=== PATIENT | female | born 1995 | race African-American/Black ===

== ENCOUNTER 2022-04-15 07:58 | Emergency (ER) | payer OTHER, SELFPAY ==
--- NOTE | ~2022-04-15 | XR_ITS ---
EXAMINATION: XR hand RT min 3V INDICATION: Right hand pain TECHNIQUE: Three views of the right hand are obtained. COMPARISON: None available FINDINGS: There is no fracture, dislocation, or subluxation. The bones, soft tissues, and joint space s are normal. IMPRESSION: 1. No acute osseous abnormality. Reviewed, dictated and finalized at location B. CTOR OF REIMBURSEMENT
--- NOTE | 2022-04-15 08:16 | ED.GENADULT ---
HPI - General Adult General Chief complaint: Extremity Injury, Upper Stated complaint: FALL, RIGHT HAND PAIN Time Seen by Provider: 04/15/22 08:09 Source: RN notes reviewed History of Present Illness HPI narrative: Patient presents emergency department from home for right hand pain. Patient is approximately 2 weeks ago she fell going up the stairs and had braced herself with her right hand she states since that time she had pain over the lateral aspect of her right hand over the fifth metacarpal patient denies any swelling or ecchymosis states pain is worse with making a fist and moving the hand she denies any wrist pain she denies any other trauma or injury states she has not taken anything for the pain she denies any numbness or tingling in the fingers Related Data Allergies Allergy/AdvReac Type Severity Reaction Status Date / Time No Known Allergies Allergy Unknown Unverified 04/05/19 16:16 No Known Allergies Allergy Uncoded 04/05/19 16:16 Review of Systems Review of Systems: Gen.: Denies fevers or chills Musculoskeletal: See HPI Neuro: Denies numbness, tingling, weakness Skin: Denies rash Endo: Denies DM PMFSH Past Medical History Medical History (Updated 04/15/22 @ 08:45 by Jose Shannon DO) Patient denies significant medical history Social History Social History (Updated 04/15/22 @ 08:17 by Jose Shannon DO) Smoking status: Never smoker Exam Narrative: APPEARANCE: No acute distress, nontoxic, resting in bed Eyes: EOMI HEENT: Normocephalic, atraumatic, RESPIRATORY: No respiratory distress MUSCULOSKELETAl: Tender palpation over the right lateral hand over the fifth metacarpal no swelling or ecchymosis noted no tenderness of the wrist with full flexion-extension of the wrist full flexion-extension of all 5 MCP and IP joints, radial pulse 2+ neurovascular intact NEURO: Awake and alert. Following commands, speech normal, no focal deficits SKIN:: Warm, dry. Normal Color no rash or lesions Course Course Emergency Course: Discussed with patient results of workup and diagnosis. Discussed need for follow-up with primary care, proper use of medication, and reasons to return to the emergency department. Patient understands and agrees to current treatment plan Medical Decision Making Imaging Data Radiologist's impression: ITS Impressions Hand X-Ray 04/15/22 08:28 IMPRESSION: 1. No acute osseous abnormality. Discharge Plan Discharge Clinical Impression: Contusion of hand, right Patient Disposition: Home, Self-Care Condition: Stable Instructions: Antibiotic Form, Contusion in Adults (ED) Additional Instructions: Return for increasing pain swelling or any other symptoms of concern Prescriptions: New ibuprofen 600 mg tablet 600 mg PO TID PRN (Reason: pain) Qty: 14 0RF Follow-up/Referrals: Wilner,JYOTSNA Hardy [Primary Care Provider] - 2 Days Time of Disposition: 08:45
[2022-04-15 08:30] VITALS: BP 125/85; PULSE 67; RESP 15; TEMP 36.7; O2SAT 100
[2022-04-15] MEDS: IBUPROFEN 600 MG TABLET PO (09:03)
== END 2022-04-15 09:31 | disposition home or self-care (01) ==
PROVIDERS: Emergency Provider Emergency Medicine; PCP Physician Assistant
DX: S60.221A Contusion of right hand, initial encounter (principal); W10.9XXA Fall (on) (from) unspecified stairs and steps, initial encounter
CPT/HCPCS: 73130; 99283; A9270

== ENCOUNTER 2022-05-03 11:58 | Emergency (ER) | payer OTHER, SELFPAY ==
--- NOTE | ~2022-05-03 | CT_ITS ---
EXAMINATION: CT wrist RT wo con DATE: 05/03/2022 14:33 INDICATION: Right wrist injury with numbness, tingling centimeters seizures. TECHNIQUE: High resolution computed tomography (CT) of the right wrist was performed without intraven ous contrast. Additional sagittal and coronal reconstructions were performed. Automated exposure cont rol and iterative reconstruction technique were employed. The dose-length product was 431.72 mGy-cm. COMPARISON: 04/15/2022 FINDINGS: Possible old fracture deformity at the ulnar styloid process. Alignment is normal. No acute fracture. Joint spaces are normal. There is some subcutaneous edema along the ulnar/volar aspect of the wrist. Soft tissues appear otherwise unremarkable. IMPRESSION: 1. No acute osseous abnormality. Reviewed, dictated and finalized at location A. 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
--- NOTE | ~2022-05-03 | XR_ITS ---
EXAMINATION: XR foot RT min 3V DATE: 05/03/2022 14:44 INDICATION: Dropped an object on the right forefoot TECHNIQUE: Dorsoplantar, two oblique and lateral views of the right foot were obtained. COMPARISON: None. FINDINGS: Alignment is normal. No fracture. Joint spaces are normal. Soft tissues are unremarkable. IMPRESSION: 1. Negative right foot radiographs. Reviewed, dictated and finalized at location A. NCIAL PROFESSIONAL
[2022-05-03 12:09] VITALS: BP 126/73; PULSE 92; RESP 16; TEMP 36.9; O2SAT 100
[2022-05-03] MEDS: KETOROLAC 30 MG/ML VIAL (*BKC) IM (14:25)
--- NOTE | 2022-05-03 14:29 | ED.NEUROSD ---
HPI - Neuro Symptoms/Deficit General Chief Complaint: Neuro Symptoms/Deficit Stated Complaint: right hand pain and tingling, right foot injury Time Seen by Provider: 05/03/22 14:11 History of Present Illness HPI Narrative: 27-year-old female here for evaluation of numbness and tingling in her right wrist and fingers over the past 3 weeks. Patient states that she injured this 3 weeks ago, was seen in the ED and plain films of her wrist were negative for fractures. Since then, she has been experiencing intermittent numbness and tingling in the wrist in addition to pain. Also notes intermittent weakness in the hand, she was holding a pot in her hand yesterday and the weakness led her to drop the item on her right foot. The numbness and tingling is worse at night and with certain positions. No headaches, visual changes, slurred speech. Related Data Allergies Allergy/AdvReac Type Severity Reaction Status Date / Time No Known Allergies Allergy Unknown Verified 05/03/22 12:09 Review of Systems Review of Systems: Gen: Denies fevers or chills Eyes: Denies eye pain or visual change ENT: Denies congestion Respiratory: Denies shortness of breath or cough CV: Denies chest pain or palpitations GI: Denies abdominal pain nausea, emesis or diarrhea denies burning, urgency, frequency or hematuria Musculoskeletal: Reports numbness and tingling in right wrist. Denies back pain or muscle pain Neuro: Denies numbness, tingling, weakness or focal weakness Skin: Denies rash Except as documented, all other systems reviewed and negative PMFSH Past Medical History Medical History Patient denies significant medical history Social History Social History (Updated 04/15/22 @ 08:17 by Jose Shannon DO) Smoking status: Never smoker Exam Narrative: APPEARANCE: Well appearing, no pain in distress, well-nourished. Head: Normocephalic and atraumatic. EYES: PERRLA/EOMI, conjunctivae clear NOSE: No nasal drainage EARS: External ear normal in appearance THROAT: Oropharynx is clear. Mucous membranes are moist. NECK: Supple. No adenopathy, no masses. RESPIRATORY: Airway patent, respirations nonlabored. Clear to auscultation bilaterally, no rales, rhonchi, wheezing. CARDIOVASCULAR: Regular rate and rhythm without murmurs, rubs, or gallops. ABDOMINAL: Normoactive bowel sounds. Soft, nontender, nondistended. No rebound tenderness or guarding. MUSCULOSKELETAL: Phalen's test positive. Tinel negative. Bony tenderness to palpation along lunate/triquetrum and distal ulna. No bony tenderness to medial or lateral malleolus, patient's area of pain is over the dorsal aspect of her right foot. NEURO: Normal speech. No focal neurologic deficits. SKIN: Skin is warm and dry. No rashes. PSYCHIATRIC: Normal affect/mood. Course Vital Signs Vital signs: Vital Signs Temperature 98.4 F 05/03/22 12:09 Pulse Rate 92 05/03/22 12:09 Respiratory Rate 16 05/03/22 12:09 Blood Pressure 126/73 05/03/22 12:09 Pulse Oximetry 100 05/03/22 12:09 Temperature 98.4 F 05/03/22 12:09 Pulse Rate 86 05/03/22 15:39 Respiratory Rate 16 05/03/22 15:39 Blood Pressure 142/88 H 05/03/22 15:39 Pulse Oximetry 99 05/03/22 15:39 MDM - Neuro Symptoms/Deficit MDM Narrative Medical decision making narrative: 27-year-old female here for evaluation of numbness and tingling in her right hand and wrist over the past several weeks. Patient has slight bony tenderness to palpation over her ulnar styloid process but no obvious deformity. Her Phalen's test is positive. She is neurovascularly intact throughout the hand. History and physical exam suspicious for carpal tunnel syndrome. 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 Given recent history of trauma, CT of the wrist was obtained which shows no acute process. Foot x-ray does not show any fractures. She was given Toradol
[2022-05-03 15:39] VITALS: BP 142/88; PULSE 86; RESP 16; O2SAT 99
== END 2022-05-03 15:40 | disposition home or self-care (01) ==
PROVIDERS: Emergency Provider Physician Assistant; PCP Physician Assistant
DX: G56.01 Carpal tunnel syndrome, right upper limb (principal); S99.921A Unspecified injury of right foot, initial encounter; W20.8XXA Other cause of strike by thrown, projected or falling object, initial encounter
CPT/HCPCS: 73200; 73630; 96372; 99284; J1885

== ENCOUNTER 2022-08-26 09:52 | Outpatient (CLI) | payer OTHER, SELFPAY ==
--- NOTE | 2022-08-26 11:00 | NEURO_ITS ---
Impression: # Complains of numbness of hands. # Bilateral Carpal Tunnel Syndrome. # Ulnar to median cross innervation noted on the right. # Normal needle/EMG exam. Motor Nerve Conduction Upper Extremities Median Nerve Conduction Velocity (m/sec) Terminal Latency (msec) Response Voltage(mV) Elbow-Wrist Wrist Elbow Wrist Right 44 3.5 2 2 Left 64 4.5 2 5 Ulnar Nerve Conduction Velocity (m/sec) Terminal Latency (msec) Response Voltage(mV) Above Elbow Below Elbow Wrist Above Elbow Below Elbow Wrist Right 57 2.5 8 10 Left 58 2.3 8 9 F-Wave Latency Median (ms) Ulnar (ms) Right 28.3 25.1 Left 27.0 26.4 Sensory Nerve Conduction Upper Extremities Median Nerve Stimulation Terminal Latency (msec) Wrist/Digit Response Voltage (uV) Wrist Right 7.4/7.9 50/72 Left 3.9/3.4 24/28 Ulnar Nerve Stimulation Terminal Latency (msec) Wrist/Digit Response Voltage (uV) Wrist Right 2.6 97 Left 2.5 62 Radial Nerve Terminal Latency (msec) Response Voltage(mV) Right 2.0 35 Left 2.0 28 Left Right Muscles Examined Fibrillation Fasciculation Scarcity Voltage Duration Left Right Left Right Left Right Left Right Left Right Deltoid Biceps X X Brachioradialis Triceps X X Pronator Teres X X Ext Indicis X X Ext Digitorum X X Abd Poll Brev X X 1st Dorsal Interosseus X X Abd Dig Min MTDD
== END 2022-08-26 09:53 | disposition home or self-care (01) ==
LOC: ANHNEURO 09:53
PROVIDERS: PCP Physician Assistant; Visit Provider Plastic Surgery
DX: R20.2 Paresthesia of skin (principal); G56.03 Carpal tunnel syndrome, bilateral upper limbs
CPT/HCPCS: 95886; 95911

== ENCOUNTER 2022-10-02 00:28 | Day surgery (SDC) | payer OTHER, SELFPAY ==
[2022-09-26 14:01] VITALS: BMI 32.8
--- NOTE | 2022-09-26 14:20 | PC.NURSE ---
Report to the Outpatient Waiting Room, entrance under the green pavilion located off [facility], at time 1000_ on date _10/02/22. Planned Procedure Time: _1100_. Time changes happen often and if your time is changed the preop area will call you the afternoon before. - You and your visitor will be asked to self-screen and do not enter if you have any COVID symptoms. - A mask is optional within the hospital at this time. Patients may have clear liquids (water, carbonated beverages, clear teas, apple juice) until 3 hours prior to surgery with a maximum of 20 ounces. - LIGHT LUNCH BEFORE SURGERY - Take the following medications with a SIP of water the morning of surgery: __N/A DO NOT STOP ANY OF YOUR OTHER PRESCRIPTION MEDICATIONS PRIOR TO SURGERY ?EXCEPT THE FOLLOWING Medications to discontinue per physician N/A Date to take last dose N/A Please no make-up, nail yakut, hairspray, perfume, deodorant, or body powder the day of surgery. No jewelry (including any body piercings) or valuables the day of surgery, leave them at home. Please take a shower or bath the night before, or the morning of, surgery with an antibacterial soap. Wear comfortable, loose fitting clothing. Children are encouraged to wear pajamas. - Jewelry must be removed prior to entering the operating room. Rings and piercings that are not removed may be cut off. - The hospital will not accept responsibility for valuables. - Please leave all valuables, including medications, at home the day of surgery. If you are going home after surgery, a licensed tanker truck driver must drive you home. - NO public transportation without another adult if you receive anesthesia. - We recommend that an adult stay with you for 24 hours following discharge. - We also recommend that you do not drive, make important decision, drink alcoholic beverages, or take any drugs that were not prescribed by your health care provider for at least 24 hours after your discharge time. Follow any additional instructions given to you from your surgeon. If you or anyone in your household have experienced Covid symptoms in the past week, please notify your surgeon or the nurse liaison at the phone number below for possible testing. Telephone instructions given to JASPERRajniand asked if any additional questions and then verbalized understanding. Patient advised to call surgeon office or pre surgery nurse liaison [phone] if any additional questions.
--- NOTE | 2022-10-02 07:17 | WPDHPUPDATE1 ---
History and Physical Update Update Date/Time: 10/02/22 07:17 History and Physical has been reviewed, including an updated exam of the patient. There are NO changes in the patient's condition. Risks, benefits, and alternatives have been discussed and questions answered. Patient agrees to proceed with procedure.
[2022-10-02 09:42] VITALS: BP 120/63; PULSE 76; RESP 14; TEMP 36.5; O2SAT 100
[2022-10-02 10:01] VITALS: BP 115/62; PULSE 69; RESP 16; O2SAT 97
[2022-10-02 10:09] VITALS: BP 114/64; PULSE 61; RESP 16; O2SAT 100
[2022-10-02] MEDS: LIDO 1%/EPINEPHRINE 1:100,000 20 ML VIAL 10 ML INFILTRATE (10:16)
[2022-10-02 10:19] VITALS: BP 116/75; PULSE 69; RESP 16; O2SAT 99
[2022-10-02 10:29] VITALS: BP 115/72; PULSE 71; RESP 16; O2SAT 100
[2022-10-02 10:44] VITALS: BP 107/71; PULSE 60; RESP 14; O2SAT 100
--- NOTE | 2022-10-02 10:58 | W.PM.PROC2 ---
Procedure Note - Detailed Date of Procedure 10/02/22 Pre-op Diagnosis Rt Carpal Tunnel Syn Post-op Diagnosis Same Procedure Performed Right open carpal tunnel release Surgeon Jose Duque MD Anesthesia Local Description of Procedure The right carpal tunnel area was marked on the patient with her consent. she was then taken to the operating placed supine on the operating table. The extremity was prepped and draped in usual fashion. A time-out was held and confirmed. The site was remarked for the incision and locally infiltrated with 1% lidocaine with epinephrine. The incision was made as marked. Blunt dissection revealed the palmar aponeurosis. Beyond that we could not proceed without use of the tourniquet. The extremity was exsanguinated and the tourniquet inflated to 250 mmHg. The site was re-examined and the transverse retinaculum was incised with a 15. Blade under 3 point retraction. The canal was opened and the retinacular released distally and proximally for complete release. There was no unusual anatomy noted. The skin was closed with interrupted 5 0 nylon suture. Usual bandage was applied. She is discharged home with instructions wound care and follow-up and a prescription for hydrocodone 5/325 number 6 Estimated Blood Loss 5 Drains No Packing No Pathology None sent Complications No immediate complications Condition Stable Disposition Same day
== END 2022-10-02 11:06 | disposition home or self-care (01) ==
PROVIDERS: PCP Internal Medicine; Visit Provider Plastic Surgery
PROC: (CPT 64721; principal; 2022-10-02 10:00)
DX: G56.01 Carpal tunnel syndrome, right upper limb (principal)
CPT/HCPCS: 64721; A9270

== ENCOUNTER 2023-08-23 10:34 | Emergency (ER) | payer OTHER, SELFPAY ==
--- NOTE | ~2023-08-23 | CT_ITS ---
EXAMINATION: CT abdomen pelvis w con DATE: 08/23/2023 12:28 INDICATION: Periumbilical and lower abdominal pain TECHNIQUE: Computed tomography (CT) of the abdomen and pelvis was performed with 100 mL Omnipaque-350 intravenous contrast. Automated exposure control and iterative reconstruction technique were employe d. The dose-length product was 709.91 mGy-cm. COMPARISON: None FINDINGS: Lung bases are clear. Heart size is normal. No pericardial or pleural effusion. Focal hepatic steatos is at the ligamentum teres. Gallbladder, spleen, pancreas, bilateral adrenal glands and kidneys are n ormal. No bowel obstruction. Small amount of ascites in the pelvis and at the bilateral paracolic gut ters. Bladder, anteverted uterus and bilateral adnexa are unremarkable. No abscess or free intraperit bassett gas. No pathologically enlarged abdominal or pelvic lymphadenopathy. Mild lower thoracic spondy losis. IMPRESSION: 1. Small amount of. Nonspecific ascites in the lower abdomen and pelvis. No other acute intra-abdomin al/pelvic process. Reviewed, dictated and finalized at location A. IMPRESSION: 1. Small amount of. Nonspecific ascites in the lower abdomen and pelvis. No oth er acute intra-abdominal/pelvic process.
--- NOTE | ~2023-08-23 | US_ITS ---
EXAMINATION: US transvaginal DATE: 08/23/2023 17:39 INDICATION: pelvic pain were TECHNIQUE: Multiple transabdominal and endovaginal sonographic images of the pelvis were obtained. COMPARISON: None. FINDINGS: Uterus: 8.5 x 3.8 x 5.8 cm. Endometrial complex measures 7 mm. Right Ovary: 4.2 x 3.1 x 3.5 cm. Vascular flow is present. Irregular, avascular, hypoechoic ovarian l esion with small areas of ill-defined somewhat reticular internal echogenicity. Left Ovary: 2.8 x 1.2 x 2.2 cm. Vascular flow is present. There is small volume free fluid in the deep pelvis, anterior to the uterus, and in the right adnexa. IMPRESSION: Small volume ascites. Likely resolving hemorrhagic or corpus luteal cyst in the right ovary. Otherwise normal transvaginal pelvic sonogram findings. Reviewed, dictated and finalized at location K.
--- NOTE | ~2023-08-23 | US_ITS ---
EXAMINATION: US pelvic complete DATE: 08/23/2023 15:40 INDICATION: dysuria, lower abd pain TECHNIQUE: Multiple transabdominal sonographic images of the pelvis were obtained. COMPARISON: CT abdomen pelvis, same date. FINDINGS: Uterus: 9.4 x 4.4 x 5.4 cm. Endometrial complex measures 3 mm. Right Ovary: 4.6 x 2.0 x 2.3 cm. Vascular flow is present. Left Ovary: Not visualized. There is small volume free fluid in the deep pelvis, anterior to the uterus and in the right adnexa. IMPRESSION: Small volume ascites. Left ovary not visualized. Otherwise normal transabdominal pelvic ultrasound findings. Reviewed, dictated and finalized at location K.
[2023-08-23 10:43] VITALS: BP 133/75; PULSE 73; RESP 20; TEMP 36.2; O2SAT 99
[2023-08-23 11:05] VITALS: BP 119/70; PULSE 70; RESP 14; O2SAT 100
--- NOTE | 2023-08-23 11:32 | ED.ABDPAIN ---
HPI - Abdominal Pain General Chief Complaint: Abdominal Pain Stated Complaint: right flank pain Time Seen by Provider: 08/23/23 10:55 History of Present Illness HPI narrative: 28-year-old female presents to the emergency department for abdominal pain x1 day. Patient states yesterday she began developing some discomfort in her lower abdomen and in her periumbilical region. States today while at work became worse, she developed nausea and 1 episode of emesis which prompted her come to the ED. states she feels like she has a UTI because this is how has presented in the past. She reports discomfort when she urinates, denies dysuria or hematuria. Denies flank pain, fever, prior abdominal surgeries. Last bowel movement was yesterday. She also endorses diarrhea that started yesterday. States she has been eating and drinking without difficulty. Reports she is sexually active with 1 partner for 10 years. Denies vaginal discharge, vaginal itching or sores or concern for STDs. States she went and saw her OBGYN 2 weeks ago for discomfort when urinating and had negative STD swabs. States she did not undergo a pelvic exam at this time. Related Data Home Medications Medication Instructions Recorded Confirmed segesterone acet 0.15 mg-ethinyl 1 vag ring vaginal MONTHLY 09/26/22 09/26/22 estradiol 0.013 mg/24 hr vaginal ring ([place]) Allergies Allergy/AdvReac Type Severity Reaction Status Date / Time No Known Allergies Allergy Unknown Verified 08/23/23 11:03 Review of Systems Review of Systems: CONSTITUTIONAL: Denies fever, chills, or sweats. EYES: Denies visual changes, redness, or discharge. ENT: Denies rhinorrhea, congestion, sore throat, or otalgia. CARDIOVASCULAR: Denies chest pain, palpitations, or edema. RESPIRATORY: Denies cough or dyspnea. GASTROINTESTINAL: See HPI GENITOURINARY: Denies dysuria or hematuria. SKIN: Denies rash or itching. MUSCULOSKELETAL: Denies back pain, joint pain, or myalgia. NEUROLOGIC: Denies headache, numbness, or weakness. PSYCHIATRIC: Denies anxiety or depression. [facility] Past Medical History Medical History Patient denies significant medical history Social History Social History Smoking status: Never smoker Smokeless tobacco user: other Alcohol intake: never Substance use: never Substance use type: marijuana Other substance usage details: OCCAS. MARIJUANA SMOKER Last use: 09/25/22 Living arrangements: with family Occupation/Education: occupation Gender identity (if verbalized by the patient): Female Sexual Orientation (if Verbalized by the Patient): Straight or Heterosexual Spiritual care concerns: No Agree to blood products: Yes Exam Narrative: GENERAL: Well-appearing, well-nourished, and in no acute distress. HEAD: Normocephalic, atraumatic. EYES: PERRLA and EOMI. ENT: Nares clear, no rhinorrhea or epistaxis. Mucous membranes moist. NECK: Supple. CHEST: Clear to auscultation. No respiratory distress. HEART: Regular rate and rhythm. No murmur heard. Normal peripheral pulses. ABDOMEN: Normoactive bowel sounds. Abdomen soft with tenderness in the periumbilical region, mild tenderness in the suprapubic region, right lower quadrant and left lower quadrant. No guarding, rebound or rigidity. Negative McBurney's and Paredes's. No CVA tenderness. : Normal external genitalia. No lesions or rashes. Vaginal vault with thick white discharge, no bleeding. Cervical os closed. No CMT or adnexal masses or tenderness. EXTREMITIES: Normal range of motion. No edema. SKIN: Warm, dry, no rash. NEURO: No focal deficits. Alert and oriented x3 Course Vital Signs Vital signs: Vital Signs Temperature 97.2 F L 08/23/23 10:43 Pulse Rate 73 08/23/23 10:43 Respiratory Rate 20 08/23/23 10:43 Blood Pressure 133/75 08/23/23 10:43 Pulse
[2023-08-23] MEDS: SODIUM CHLORIDE 0.9% IV 1,000 ML 999 ML IV CONT (11:46)
[2023-08-23] MEDS: ONDANSETRON INJ 4 MG/2 ML VIAL IV PUSH (11:47)
[2023-08-23 11:48] VITALS: BP 119/69; PULSE 66; RESP 15; O2SAT 100
[2023-08-23 11:53] LABS: Basophils Absolute Auto 0.1 K/mm3 (0.0-0.1); Basophils Percent Auto 0.4 % (0.2-1.2); Eosinophils Absolute Auto 0.1 K/mm3 (0-0.3); Eosinophils Percent Auto 0.6 % (0-4.4); Hematocrit 39.8 % (37.0-47.0); Hemoglobin 13.3 g/dL (12.0-15.0); Immature Granulocyte Absolute 0.05 K/mm3 (0.00-0.031); Immature Granulocyte Percent A 0.3 % (0-0.5); Lymphocytes Absolute Auto 2.53 K/mm3 (0.9-3.2); Lymphocytes Percent Auto 17.6 % (18.3-44.2); Mean Corpuscular HGB Conc 33.4 g/dl (32-36); Mean Corpuscular Hemoglobin 31.6 pg (26-34); Mean Corpuscular Volume 94.5 fl (80-100); Mean Platelet Volume 9.9 fl (7.4-10.4); Monocytes Absolute Auto 0.6 K/mm3 (0.1-0.6); Neutrophils Absolute Auto 11.1 K/mm3 (1.3-6.7); Neutrophils Percent Auto 77.1 % (45.5-73.1); Platelet Count Result 364 k/mm3 (150-375); Red Blood Count 4.21 M/mm3 (4.2-5.4); Red Cell Distribution Width 12.8 % (11.5-14.5); White Blood Count 14.4 K/mm3 (4.5-10.0)
[2023-08-23 11:55] LABS: Appearance Urine Clear (Clear); Bilirubin Urine Negative (Negative); Blood Urine Negative (Negative); Color Urine Yellow (Yellow); Glucose Urine UA Negative (Negative); Ketones Urine Trace mg/dL (Negative); Leukocyte Esterase Ur Negative LEU/UL (Negative); Nitrate Urine Negative (Negative); Protein Urine Negative (Negative); Specific Grav Ur 1.022 (1.001-1.035); Urobilinogen Urine 0.2 mg/dL (<2.0); pH Urine 5.5 (5.0-9.0)
[2023-08-23 12:10] LABS: Add Urine Microscopic? NO
[2023-08-23 12:12] LABS: Lactic Acid Reflex 1.4 mmol/L (0.7-2.0)
[2023-08-23 12:13] LABS: Alanine Aminotransferase 13 U/L (6-35); Albumin Level 4.2 g/dL (3.5-5.1); Alkaline Phosphatase 74 U/L (38-126); Anion Gap 4 mmol/L (8-16); Aspartate Amino Transferase 23 U/L (14-36); Bilirubin,Total 0.3 mg/dL (0.2-1.3); Blood Urea Nitrogen 11 mg/dL (7-17); Calcium 9.2 mg/dL (8.4-10.2); Carbon Dioxide 29 mmol/L (22-30); Chloride 105 mmol/L (98-107); Estimated CRCL calculation 124 ml/min; Estimated Glomerular Filt Rate > 60; Glucose 91 mg/dL (65-110); Lipase 74 U/L (23-300); Potassium 3.7 mmol/L (3.4-5.0); Sodium 138 mmol/L (137-145)
[2023-08-23 14:05] VITALS: BP 118/82; PULSE 79; RESP 14; O2SAT 100
[2023-08-23 15:27] LABS: Trichomonas Vag PCR NOT DETECTED (NOT DETECTE)
[2023-08-23 15:41] VITALS: BP 120/78; PULSE 66; RESP 14; O2SAT 98
[2023-08-23 15:50] LABS: Chlamydia trachomatis NOT DETECTED (NOT DETECTE); Neisseria gonorrhoeae PCR NOT DETECTED (NOT DETECTE)
[2023-08-23 18:26] VITALS: BP 122/80; PULSE 67; RESP 14; TEMP 36.4; O2SAT 100
[2023-08-23] MEDS: metroNIDAZOLE 500 MG TABLET PO (18:26)
[2023-08-26 10:03] LABS: Bacterial Vaginosis Negative (Negative)
== END 2023-08-23 18:29 | disposition home or self-care (01) ==
PROVIDERS: Emergency Provider Physician Assistant; PCP Internal Medicine
DX: N83.201 Unspecified ovarian cyst, right side (principal); R10.30 Lower abdominal pain, unspecified; Z87.440 Personal history of urinary (tract) infections
CPT/HCPCS: 36415; 74177; 76830; 76856; 80053; 81025; 81513; 83605; 83690; 85025; 87491; 87591; 87661; 96361; 96374; 99284; A9270; J2405; J7030; Q9967

== ENCOUNTER 2023-11-21 11:04 | Emergency (ER) | payer MEDICAID, SELFPAY ==
[2023-11-21 11:08] VITALS: BP 125/80; PULSE 86; RESP 20; TEMP 36.5; O2SAT 100
--- NOTE | 2023-11-21 12:09 | ED.EXTPRO ---
HPI - Extremity Problem General Chief complaint: Extremity Problem,Nontraumatic Stated complaint: swollen finger, pain up the arm Time Seen by Provider: 11/21/23 11:14 Source: patient Mode of arrival: ambulatory Limitations: no limitations History of Present Illness HPI Narrative: patient is a 28-year-old female who presents the ED with report of pain throughout her right 4th digit. Patient reports she began noticing pain and mild swelling to the tip of her finger on Friday. She began noticing an area of pus collection around the cuticle on Friday. Symptoms have continued to worsen. She reports pain intermittently shoots up her arm. Denies any known injury to nail/cuticle. Does frequently have hang-nails. Denies fevers. Related Data Home Medications Medication Instructions Recorded Confirmed segesterone acet 0.15 mg-ethinyl 1 vag ring vaginal MONTHLY 09/26/22 09/26/22 estradiol 0.013 mg/24 hr vaginal ring ([place]) Allergies Allergy/AdvReac Type Severity Reaction Status Date / Time No Known Allergies Allergy Unknown Verified 11/21/23 11:38 Review of Systems Review of Systems: CONSTITUTIONAL: Denies fever, chills, or sweats. SKIN: See HPI MUSCULOSKELETAL: See HPI All systems reviewed & are unremarkable except as noted in HPI and below PMFSH Past Medical History Medical History Patient denies significant medical history Social History Social History Smoking status: Never smoker Smokeless tobacco user: other Alcohol intake: never Substance use: never Substance use type: marijuana Other substance usage details: OCCAS. MARIJUANA SMOKER Last use: 09/25/22 Living arrangements: with family Occupation/Education: occupation Gender identity (if verbalized by the patient): Female Sexual Orientation (if Verbalized by the Patient): Straight or Heterosexual Spiritual care concerns: No Agree to blood products: Yes Exam Narrative: GENERAL: Well appearing, well-nourished, non-toxic, in no acute distress. HEAD: Normocephalic, atraumatic. RESPIRATORY: Airway patent, respirations nonlabored. CARDIOVASCULAR: Regular rate and rhythm. Radial pulses strong. MUSCULOSKELETAL: Moves all extremities. No gross deformities. SKIN: Warm, dry, normal color. Mild swelling and erythema to distal tip of R 4th digit, erythema extending to finger pad. Diffuse tenderness. Border of fluctuance and purulent material surrounding cuticle and lateral nail edge. Mild warmth noted. NEURO: A&O X3. Speech clear. Cranial nerves II-XII grossly intact. Steady gait. No ataxic movements. PSYCHIATRIC: Appropriate mood and affect. Normal interaction. Course Vital Signs Vital signs: Vital Signs Temperature 97.7 F 11/21/23 11:08 Pulse Rate 86 11/21/23 11:08 Respiratory Rate 20 11/21/23 11:08 Blood Pressure 125/80 11/21/23 11:08 Pulse Oximetry 100 11/21/23 11:08 Oxygen Delivery Room Air 11/21/23 11:08 Temperature 97.7 F 11/21/23 11:08 Pulse Rate 86 11/21/23 11:08 Respiratory Rate 20 11/21/23 11:08 Blood Pressure 125/80 11/21/23 11:08 Pulse Oximetry 100 11/21/23 11:08 Oxygen Delivery Room Air 11/21/23 11:08 Procedures Abscess I/D hand: Date of Incision: 11/21/23 Time of Incision: 13:00 Side (if applicable): right (R 4th digit paronychia) Sedation/analgesia: none Local Anesthetic: other anesthetic (digital block) Technique: needle aspiration and incised with #11 blade Amount of fluid expressed (mL): 5 Irrigation: Yes Packing used?: none I&D Results: Pus and Blood Complications: other (none) MDM - Extremity (Nontraumatic) MDM Narrative Medical decision making narrative: Exam consistent with paronychia with abscess. Digital nerve block performed. I&D perform
[2023-11-21] MEDS: SULFAMETHOXAZOLE/TRIMETHOPRIM 800/160 MG DS TABLET 1 TAB PO (12:25)
[2023-11-21 13:26] VITALS: BP 120/74; PULSE 79; RESP 16; TEMP 36.4; O2SAT 100
== END 2023-11-21 13:27 | disposition home or self-care (01) ==
PROVIDERS: Emergency Provider Physician Assistant; PCP Internal Medicine
DX: L03.011 Cellulitis of right finger (principal)
CPT/HCPCS: 26010; 87070; 87205; 99283; A9270

== ENCOUNTER 2024-11-29 15:39 | Outpatient (CLI) | payer OTHER, SELFPAY ==
[2024-11-29 17:13] LABS: Hematocrit 34.1 % (37.0-47.0); Hemoglobin 11.6 g/dL (12.0-15.0); Mean Corpuscular Volume 94.2 fl (80-100); Mean Platelet Volume 9.3 fl (7.4-10.4); Platelet Count Result 361 k/mm3 (150-375); Red Blood Count 3.62 M/mm3 (4.2-5.4); Red Cell Distribution Width 11.9 % (11.5-14.5); White Blood Count 16.1 K/mm3 (4.5-10.0)
[2024-11-29 17:23] LABS: Alanine Aminotransferase 15 U/L (6-35); Albumin Level 4.1 g/dL (3.5-5.1); Alkaline Phosphatase 58 U/L (38-126); Anion Gap 8 mmol/L (4-12); Aspartate Amino Transferase 23 U/L (14-36); Bilirubin,Total 0.1 mg/dL (0.2-1.3); Blood Urea Nitrogen 6 mg/dL (7-17); Calcium 9.3 mg/dL (8.4-10.2); Carbon Dioxide 24 mmol/L (22-30); Chloride 103 mmol/L (98-107); Estimated Glomerular Filt Rate > 60; Glucose 101 mg/dL (65-110); Glucose 1 Hour PP 50gm Dose 100 mg/dL; Potassium 3.6 mmol/L (3.4-5.0); Sodium 135 mmol/L (137-145); Total Protein 7.3 g/dL (6.3-8.2)
[2024-11-29 17:25] LABS: Creatinine Urine 299.9 mg/dL
[2024-11-29 17:51] LABS: Syphilis IgG/IgM Antibody Non-Reactive (Nonreactive)
[2024-11-29 17:54] LABS: Hepatitis B Surface Antigen Negative (Negative)
[2024-11-29 17:55] LABS: Total Protein Urine Random < 5 mg/dL
[2024-11-29 17:59] LABS: Rubella IgG Antibody 44.4 IU/ML
[2024-11-29 18:03] LABS: HIV 1/2 Ab P24 Ag Result Negative (Negative)
[2024-12-01 02:14] LABS: CMV IgG Antibody <0.60 U/mL; Varicella IgG Antibody 1.22 S/CO
== END 2024-11-29 15:40 | disposition home or self-care (01) ==
PROVIDERS: PCP Internal Medicine; Visit Provider Student in an Organized Health Care Education/Training Program
DX: N91.2 Amenorrhea, unspecified (principal); Z87.59 Personal history of other complications of pregnancy, childbirth and the puerperium
CPT/HCPCS: 36415; 80053; 81050; 82570; 82947; 84156; 84550; 84702; 85027; 85660; 86593; 86644; 86703; 86747; 86762; 86787; 86850; 86900; 86901; 87086; 87340; G0432

== ENCOUNTER 2024-12-04 17:15 | Emergency (ER) | payer OTHER, SELFPAY ==
[2024-12-04 17:16] VITALS: BP 124/74; PULSE 95; RESP 18; TEMP 36.5; O2SAT 100
[2024-12-04 21:22] LABS: Add Urine Microscopic? YES; Appearance Urine Clear (Clear); Bacteria Urine 3+ /hpf; Bilirubin Urine Negative (Negative); Blood Urine Negative (Negative); Color Urine Yellow (Yellow); Glucose Urine UA Negative (Negative); Ketones Urine Trace mg/dL (Negative); Leukocyte Esterase Ur Trace LEU/UL (Negative); Nitrate Urine Negative (Negative); Non Pathogenic Casts 0-2; Protein Urine Negative (Negative); RBC Urine 0-2 /hpf (0-2); Specific Grav Ur 1.026 (1.001-1.035); Squamous Epithelial Cell Urine Few /hpf (Few)
[2024-12-04 21:52] VITALS: BP 122/64; PULSE 89; RESP 20; TEMP 36.9; O2SAT 100
[2024-12-04 21:57] VITALS: BP 122/64; PULSE 86; RESP 18; O2SAT 100
--- NOTE | 2024-12-04 21:58 | PC.NURSE ---
This RN called and asked lab to add on an hcg test to urine and was told they would.
[2024-12-04 22:02] LABS: Pregnancy On Board Control Positive; Urine Pregnancy Test Positive
[2024-12-04 22:03] VITALS: BP 125/73; PULSE 90; RESP 21; O2SAT 100
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
[2024-12-04] MEDS: ACETAMINOPHEN 500 MG TABLET 1000 MG PO (23:38)
[2024-12-04] MEDS: LIDOCAINE 5% PATCH 1 PATCH TRANSDERM (23:40)
[2024-12-05] MEDS: CEPHALEXIN 500 MG CAPSULE PO (00:09)
[2024-12-05 00:30] VITALS: BP 105/59; PULSE 82; RESP 17
[2024-12-05 00:34] VITALS: BP 105/60; PULSE 90; RESP 24; TEMP 36.7; O2SAT 100
== END 2024-12-05 00:33 | disposition home or self-care (01) ==
PROVIDERS: Student in an Organized Health Care Education/Training Program; Emergency Provider Physician Assistant
DX: O9A.211 Injury, poisoning and certain other consequences of external causes complicating pregnancy, first trimester (principal); S39.012A Strain of muscle, fascia and tendon of lower back, initial encounter; Z3A.10 10 weeks gestation of pregnancy; R82.90 Unspecified abnormal findings in urine
CPT/HCPCS: 81001; 81025; 87086; 99283; A9270

== ENCOUNTER 2024-12-27 11:17 | Outpatient (CLI) | payer OTHER, SELFPAY ==
--- OUTSIDE RECORDS SUMMARY | 2024-12-27 11:22 | XMS_ITS | Clinical Summary ---
Author Organization [facility] Address [address] [place] [id number] Care Team Providers Care Stripper Black And White Name Role Phone Unknown, Notinfile Primary Care Provider Unavail able Allergies No known active allergies Medications cyclobenzaprine (FLEXERIL) 10 mg tablet Take 1 tablet (10 mg total) by mouth 3 (three) times a day as needed for muscle spasms 30 tablet 4 Active ketorolac (TORADOL) 10 mg tablet Take 1 tablet (10 mg total) by mouth every 6 (six) hours as needed for pain 20 tablet 4 Active mupirocin (BACTROBAN) 2 % ointmentIndicati ons:Rash and nonspecific skin eruption Apply topically 2 (two) times a day 22 g 5 Active Active Problems No known active problems Encounters Date Type Department Care Team Description 10/20/2024 12:30 PM CDT Office Visit [facility] [address] [phone] Yvette Diez NP Nausea (Primary Dx); Rash and nonspecific skin eruption from Last 3 Months Social History Tobacco Use Types Packs/Day Years Used Date Smoking Tobacco: Never Assessed Personal Safety Answer Date Recorded Have you ever been in or are you currently in a harmful physical or emotional relationship or is someone making you feel afraid or unsafe? 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 Gender Identity Not on file Sexual Orientation Not on file Last Filed Vital Signs Vital Sign Reading Time Taken Comments Blood Pressure 119/74 10/20/2024 12:40 PM CDT Pulse 84 10/20/2024 12:40 PM CDT Temperature 36.7 C (98.1 F) 10/20/2024 12:40 PM CDT Respiratory Rate 21 10/20/2024 12:40 PM CDT Oxygen Saturation 99% 10/20/2024 12:40 PM CDT Inhaled Oxygen Concentration - - Weight 95.3 kg (210 lb) 10/20/2024 12:40 PM CDT Height 160 cm (5' 3) 10/20/2024 12:40 PM CDT Body Mass Index 37.2 10/20/2024 12:40 PM CDT Plan of Treatment Health Maintenance Due Date Last Done Comments Cervical Cancer Screening 1997 Depression Screening 1997 Hepatitis C Screening 1997 Regular Well Visit/Exam 18-64 2015 Influenza Vaccine (#1) 2025 0, 06/22/2018, 04/10/2015, Additional history exists DTaP/Tdap/Td Vaccine (9 - Td or Tdap) 03/27/2030 03/27/2020, 02/04/2011, 02/04/2011, Additional history exists Hepatitis B Screening Completed 02/03/1998 , 02/03/1998, 1997, Additional history exists Varicella Vaccines Completed 02/04/2011, 06/12/1998 HPV Vaccines Completed 02/21/2016, 12/2014, 10/26/2013 Pneumococcal vaccine <65 Aged Out No longer eligible based on patient's age to complete this topic Procedures Procedure Name Priority Date/Time Associated Diagnosis Comments POCT HCG, URINE Routine 10/20/2024 12:58 PM CDT Nausea from Last 3 Months Results * POCT hCG, urine (10/20/2024 12:58 PM CDT) HCG, ur, POC Negative Negative Lot Number 0 QC Backgroud Clear Acceptable QC Control Line Acceptable Urine 10/20/2024 12:5 8 PM CDT Yvette Diez INORGANIC CHEMISTRY TEACHER POINT OF CARE TEST ORDERAB LES Final Result from Last 3 Months Insurance IDPA Care Teams Stripper Black And White Relationship Specialty Start Date End Date Unknown, Notinfile PCP - General 10/20/24
--- OUTSIDE RECORDS SUMMARY | 2024-12-27 11:22 | XMS_ITS | Clinical Summary ---
Author Organization [facility] Address [address] [place] [address] Care Team Providers Care Size Changer Name Role Phone Jai Darby Primary Care Provider + Source Comments [facility],non-owned Affiliates and Associated Physician Practices is amultiple site organization consisting of ambulatory clinics and hospital sitesin [place], [place], [place] and [place]. This disclosure is being madepursuant to the Care Everywhere program and may not contain all information available regarding this patient. Last updated 18.[facility] [employer] Allergies No known active allergies Medications * Be aware that medications may not be up to date on this document. Alwaysverify current medications with the patient. Vit-Fe Fumarate-FA ( VITAMIN) 28-0.8 MG tablet Take 1 tablet by mouth once daily Active acetaminophen (TYLENOL) 325 MG tablet Take 2 tablets by mouth every 6 hours as needed Maximum allowable Acetaminophen amount = 4 Grams (4000 mg) / 24 hours. 60 tablet 0 Active ibuprofen (MOTRIN) 600 MG tablet Take 1 tablet by mouth every 6 hours 60 tablet 1 0 Active NIFEdipine CR 24hr (ADALAT CC) 60 MG tablet Take 1 tablet by mouth once daily Take on an empty stomach. 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 CAB Gender Identity Not on file Sexual Orientation Not on file Last Filed Vital Signs Vital Sign Reading Time Taken Comments Blood Pressure 126/81 05/22/2020 12:17 PM SUPERVISOR CAB Pulse 86 05/22/2020 12:17 PM SUPERVISOR CAB Temperature 36.8 C (98.3 F) 05/18/2020 3:45 PM SUPERVISOR CAB Respiratory Rate 16 05/18/2020 3:45 PM SUPERVISOR CAB Oxygen Saturation 100% 05/18/2020 3:45 PM SUPERVISOR CAB Inhaled Oxygen Concentration - - Weight 111 kg (244 lb 11.2 oz) 05/18/2020 5:53 A M SUPERVISOR CAB Height 160 cm (5' 3) 05/17/2020 4:00 AM SUPERVISOR CAB Body Mass Index 43.35 05/17/2020 4:00 AM SUPERVISOR CAB Plan of Treatment Health Maintenance Due Date Last Done Comments HIV SCREENING 2012 HEPATITIS C SCREENING 04/17/2015 DTAP/TDAP/TD VACCINES (1 - Tdap) 2016 HEPATITIS B VACCINE (1 of 3 - 19+ 3-dose series) 2016 PAP SMEAR 2018 COVID-19 VACCINE (1 - 2023-25 season) 2024 HPV VACCINE (1 - 3-dose SCDM series) 2024 DEPRESSION SCREENING 06/09/2024 INFLUENZA VACCINE (#1) 2025 0, 06/22/2018, 04/10/2015, Additional history exists ZOSTER VACCINE (1 of 2) 2047 HIB VACCINE Aged Out No longer eligi ble based on patient's age to complete this topic MENINGOCOCCAL (Group B) VACCINE SHARED DECISION-MAKING Aged Out No longer eligible based on patient's age to complete this topic MENINGOCOCCAL GROUPS A/C/Y/W VACCINE Aged Out No longer eligible based on patient's age to complete this topic PNEUMOCOCCAL VACCINE Aged Out No long er eligible based on patient's age to complete this topic Insurance Advance Directives * Full Code (Latest Code Status on File) Date Activated Date Inactivated Comments 05/14/2020 8:50 AM 05/18/2020 7:20 PM * Full Code Date Activated Date Inactivated Comments 05/10/2020 3:32 PM 05/14/2020 8:50 AM Care Teams Size Changer Relationship Specialty Start Date End Date Jai Darby PA [address] [place] [phone] PCP - General 03/01/21
--- OUTSIDE RECORDS SUMMARY | 2024-12-27 11:22 | XMS_ITS | Referral Summary ---
Author Organization [facility] Address [address] [place] [address] Care Team Providers Care Book Retailer Name Role Phone Unknown, Notinfile Primary Care Provider Unavail able Encounters Date Type Department Care Team Description 10/20/2024 12:30 PM CDT Office Visit [facility] at [address] [phone] Yvette Diez NP Nausea (Primary Dx); Rash and nonspecific skin eruption from Last 3 Months Allergies No known active allergies Medications cyclobenzaprine [...] Active Active Problems No known active problems Social History Tobacco Use Types Packs/Day Years [...] on file Legal 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 Gender Identity Not on file Sexual Orientation [...] 10/20/2024 12:40 PM CDT Plan of Treatment Not on file Procedures Procedure Name Priority Date/Time Associated Diagnosis Comments POCT HCG, URINE Routine 10/20/2024 12:58 PM CDT Nausea from Last 3 Months Results * POCT hCG, urine (10/20/2024 12:58 PM CDT) HCG, ur, POC Negative Negative Lot Number 0 QC Backgroud Clear Acceptable QC Control Line Acceptable Urine 10/20/2024 12:5 8 PM CDT Yvette Diez NP POINT OF CARE TEST ORDERAB LES Final Result from Last 3 Months Insurance IDPA [employer] Care Teams Book Retailer Relationship Specialty Start Date End Date Unknown, Notinfile PCP - General 10/20/24
== END 2024-12-27 11:18 | disposition home or self-care (01) ==
PROVIDERS: PCP Student in an Organized Health Care Education/Training Program; Visit Provider Student in an Organized Health Care Education/Training Program
DX: Z34.90 Encounter for supervision of normal pregnancy, unspecified, unspecified trimester (principal); Z3A.00 Weeks of gestation of pregnancy not specified
CPT/HCPCS: 81420

== ENCOUNTER 2025-04-06 14:10 | Observation (INO) | payer OTHER, SELFPAY ==
[2025-04-06 14:54] VITALS: BP 100/49; PULSE 102
[2025-04-06 15:03] LABS: Add Urine Microscopic? YES; Appearance Urine Clear (Clear); Glucose Urine UA Negative (Negative); Leukocyte Esterase Ur Trace LEU/UL (Negative); Nitrate Urine Negative (Negative); Non Pathogenic Casts 0-2; Specific Grav Ur 1.022 (1.001-1.035)
[2025-04-06 15:04] VITALS: BMI 39.4
[2025-04-06] MEDS: ACETAMINOPHEN 500 MG TABLET 1000 MG PO (15:04)
--- NOTE | 2025-04-06 15:12 | OBADM ---
This patient, Raquel Rios, admitted to the OB room 116 for observation. Patient/family oriented to hospital policies and general routines including ID bracelet, bed and alarms, visiting hours, pain management, procedures, bathroom and other care routines, personal items, smoking policy, room service/diet, and visiting hours. Patient/Family are encouraged to report perceived risks to care and to ask questions if they do not understand what they are told or what they should do.
[2025-04-06 15:38] VITALS: BP 93/49; PULSE 87
[2025-04-06 16:00] VITALS: BP 109/56; PULSE 89
--- OUTSIDE RECORDS SUMMARY | 2025-04-06 16:11 | XMS_ITS | Clinical Summary ---
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
--- OUTSIDE RECORDS SUMMARY | 2025-04-06 16:11 | XMS_ITS | Clinical Summary ---
Author Organization [facility] Address [address] [address] Care Team Providers Care Paver Name Role Phone Jai Darby Primary Care Provider + Source Comments [facility],non-owned Affiliates and Associated Physician Practices is amultiple site organization consisting of ambulatory clinics and hospital sitesin [place], [place], [place] and [place]. This disclosure is being madepursuant to the Care Everywhere program and may not contain all information available regarding this patient. Last updated 18.[facility] [email or web address] Allergies No known active allergies Medications * [...] Pre-eclampsia in third trimester 05/10/2020 Trauma 08/09/2010 Estimated Date of Delivery Comme nts Yes 07/01/2025 Based on last me nstrual period of 09/24/2024 Encounters Date Type Department Care Team Description 02/22/2025 8:59 AM CDT - 02/22/2025 11:59 PM CDT Hospital Encounter [facility] [address] [place], [place] [id number] Srinivas Levi MD Discharge Disposition: Home or Self Care from Last 3 Months Immunizations Immunization Administration Dates Next Due MMR 05/17/2020(Deferred: See Comment s - Immune) TDAP (7yrs+) 05/17/2020() Social History Tobacco Use Types Packs/Day Years Used Date Smoking Tobacco: Never Assessed Estimated Date of Delivery Comme nts Yes 07/01/2025 Based on last me nstrual period of 09/24/2024 Sex and Gender Information Value Date Recorded Sex Assigned at Not on file Legal Sex Female 6:38 AM ADMISSIONS SPECIALIST Gender Identity Not on file Sexual Orientation Not on file Last Filed Vital Signs Vital Sign Reading Time Taken Comments Blood Pressure 126/81 05/22/2020 12:17 PM ADMISSIONS SPECIALIST Pulse 86 05/22/2020 12:17 PM ADMISSIONS SPECIALIST Temperature 36.8 C (98.3 F) 05/18/2020 3:45 PM ADMISSIONS SPECIALIST Respiratory Rate 16 05/18/2020 3:45 PM ADMISSIONS SPECIALIST Oxygen Saturation 100% 05/18/2020 3:45 PM ADMISSIONS SPECIALIST Inhaled Oxygen Concentration - - Weight 111 kg (244 lb 11.2 oz) 05/18/2020 5:53 A M ADMISSIONS SPECIALIST Height 160 cm (5' 3) 05/17/2020 4:00 AM ADMISSIONS SPECIALIST Body Mass Index 43.35 05/17/2020 4:00 AM ADMISSIONS SPECIALIST Plan of Treatment Health Maintenance Due Date Last Done Comments HIV SCREENING 2012 HEPATITIS C SCREENING 04/17/2015 DTAP/TDAP/TD VACCINES (1 - Tdap) 2016 HEPATITIS B VACCINE (1 of 3 - 19+ 3-dose series) 2016 PAP SMEAR 2018 HPV VACCINE (1 - 3-dose SCDM series) 2024 DEPRESSION SCREENING 06/09/2024 COVID-19 VACCINE ( season) 2025 INFLUENZA VACCINE (#1) 2025 , 06/22/2018, 04/10/2015, Additional history exists OB-ONE HOUR GLUCOSE 03/25/2025 OB-TDAP CURRENT 04/01/2025 03/27/2020, Respiratory Syncytial Virus (RSV) Vaccine Pt: or over 60 yrs (1 - Risk 1-dose series) 05/06/2025 ZOSTER VACCINE (1 of 2) 2047 HIB [...] Procedure Name Priority Date/Time Associated Diagnosis Comments SONOGRAM - COMPLETE Routine 02/22/2025 9 :13 AM CDT Encounter for anatomic survey (HCC) Obesity affecting , antepartum, unspecified obesity type (HCC) from Last 3 Months Results * Sonogram - Complete (02/22/2025 9:13 AM CDT) Linked Results Indication ======== anatomy evaluation Maternal obesity complicating , class 2 (BMI 35.0 - 39.9) History ====== OB History 2. Para 1 [id number] 1. live 2019. Gest. age 35 w + 0 d. Weight 1,928 g. Sex of child: female. Details: Vaginal delivery; Pre-E with Severe Features Lab Tests Test Date Result NIPT Low risk, Male Maternal Assessment Physical Exam Height 160 cm, 5 ft 3 in. Weight 95 kg, 210 lb. Initial weight 96 kg, 212 lb. BMI 37.20 kg/m . Initial BMI 37.55 kg/m . Weight gain -1 kg, -2 lb Method ====== Transabdominal and transvaginal ultrasound. View: Good view ========= Aguirre . Number of fetuses: 1 Dating ====== Date Details Gest. age ADRIANNA LMP 09/24/2024 21 w + 4 d 07/01/2025 U/S 02/22/2025 based upon AC, BPD, Femur, HC 22 w + 2 d 06/26/2025 Assigned dating based on the LMP, selected on 02/22/2025 21 w + 4 d 07/01/2025 General Evaluation Cardiac activity present. FHR 150 bpm. Presentation: cephalic Placenta: Placental site: posterior. No previa seen Umbilical cord: Cord vessels: 3 vessel cord. Insertion site: normal insertion Amniotic fluid: Amount of AF: normal. MVP 5.9 cm Biometry BPD 54.3 mm 22w 4d 82% Hadlock HC 198.5 mm 22w 0d 59% Hadlock Cerebellum tr 23.7 mm 86% [place] Nuchal fold 4.2 mm AC 170.5 mm 22w 0d 58% Hadlock Femur 38.3 mm 22w 2d 64% Hadlock Humerus 35.8 mm 22w 3d 75% Sanjay HC / AC 1.16 20w 3d Hadlock Weight Calculation: EFW 479 g 72% Hadlock EFW (lb,oz) 1 lb 1 oz EFW by Hadlock ([id number]) appropriate Growth Overview Exam date GA BPD (mm) HC (mm) AC (mm) FL (mm) HL (mm) EFW (g) 02/22/2025 21w 4d 54.3 82% 198.5 59% 170.5 58% 38.3 64% 35.8 75% 479 72% Anatomy The following structures appear normal: Head / Neck Cranium. Lateral ventricles. Choroid plexus. Midline falx. Cavum septi pellucidi. Cerebellum. Cisterna magna. Thalami. Nuchal fold. Face Lips. Profile. Nose. Nasal bone. Orbits. Heart / Thorax 4-chamber view. RVOT view. LVOT view. 3-vessel view. 7-qnuipd-wqhszkr view. Situs. Aortic arch view. Bicaval view. Ductal arch view. Interventricular septum. Great vessels. Right lung. Left lung. Diaphragm. Abdomen Cord insertion. Stomach. Kidneys. Bladder. Bowel. Genitals. Spine Cervical spine. Thoracic spine. Lumbar spine. Sacral spine. Extremities / Skeleton Arms. Hands. Legs. Feet. sex: male. Maternal Structures Cervix reassuring Approach - Transvaginal: Cervical length 3.90 cm Right Ovary Normal Cyst(s) Size 25.0 mm x 15.0 mm x 15.0 mm. Mean 18.3 mm. Vol 2.945 cm Left Ovary Not visualized Impression ========= Single live intrauterine at 21w 4d The size & amniotic fluid volume are normal. The transvaginal cervical length is reassuring. No malformations were seen within the limitations of ultrasound. Follow-up ======== U/S for growth at 32 weeks surveillance recommendations per ACOG CO-828: Immediately preceding c preeclampsia requiring PTB, start at 32w0d 1X weekly Coding ====== Diagnoses O99.212, E66.812: Obesity complicating , class 2 (BMI 35.0 - 39.9) Z36.3: Encounter for screening for malformations Procedures 44386: [place] Preg Uterus Detailed 49534: US Preg Uterus Transvaginal [facility] [employer] PACS Anatomical Region Laterality Modality Other 02/22/2025 9:13 AM CDT Salvatore Cosme MD [facility] ORDERABLES Edited Result - Final from Last 3 Months Insurance [facility] Care Address: [address] [address] [facility] Advance Directives * Full Code (Latest Code Status on File) Date Activated Date Inactivated Comments 05/14/2020 8:50 AM 05/18/2020 7:20 PM * Full Code Date Activated Date Inactivated Comments 05/10/2020 3:32 PM 05/14/2020 8:50 AM Care Teams Paver Relationship Specialty Start Date End Date Jai Darby PA [address] [place] [address] PCP - General 03/01/21
[2025-04-06 16:30] VITALS: BP 87/46; PULSE 85
[2025-04-06 19:31] VITALS: RESP 18; TEMP 36.8
--- NOTE | 2025-04-07 07:12 | P.PNOB_ITS ---
OB - Triage/Final Diagnosis Visit Information Date of evaluation: 04/06/25 Reason for evaluation: other (fall) Comments/Additional reasons for admission: I have assessed the risk for this patient, Raquel Rios, and determined that she would benefit from observation care. Evaluation Laboratory results: Laboratory Tests 04/06/25 14:49 Urine Color Yellow Urine Appearance Clear Urine pH 6.0 Ur Specific [place] 1.022 Urine Protein Negative Urine Glucose (UA) Negative Urine Ketones Negative Ur Blood (Man) Negative Urine Nitrate Negative Urine Bilirubin Negative Urine Urobilinogen 1.0 Leukocyte Esterase Rfl Trace H Urine RBC 0-2 Urine WBC 0-5 Ur Squamous Epith Cells None seen Urine Bacteria 1+ H Urine Casts 0-2 Vital signs: Vital Signs - 24 hr 04/06/25 14:54 04/06/25 15:04 04/06/25 15:38 Temperature Pulse Rate 102 H 87 Respiratory Rate Blood Pressure 100/49 L 93/49 L Oxygen Delivery Room Air 04/06/25 16:00 04/06/25 16:30 04/06/25 19:31 Temperature 98.3 F Pulse Rate 89 85 Respiratory Rate 18 Blood Pressure 109/56 L 87/46 L Oxygen Delivery
== END 2025-04-06 17:26 | disposition home or self-care (01) ==
PROVIDERS: Admitting Provider Student in an Organized Health Care Education/Training Program; PCP Emergency Medicine; Visit Provider Student in an Organized Health Care Education/Training Program
DX: O9A.212 Injury, poisoning and certain other consequences of external causes complicating pregnancy, second trimester (principal); T14.90XA Injury, unspecified, initial encounter; Z3A.27 27 weeks gestation of pregnancy; W18.30XA Fall on same level, unspecified, initial encounter
CPT/HCPCS: 81001; A9270; G0378; G0379

== ENCOUNTER 2025-04-21 08:54 | Outpatient (CLI) | payer OTHER, SELFPAY ==
--- OUTSIDE RECORDS SUMMARY | 2025-04-21 09:13 | XMS_ITS | Clinical Summary ---
Author Organization [facility] Address [address] [place] [address] Care Team Providers Care Silk Conditioner Name Role Phone Jai Darby Primary Care Provider + Source Comments [facility],non-owned Affiliates and Associated Physician Practices is amultiple site organization consisting of ambulatory clinics and hospital sitesin [place], [place], [place] and [place]. This disclosure is being madepursuant to the Care Everywhere program and may not contain all information available regarding this patient. Last updated 18.[facility] [employer] Allergies No known active allergies Medications * [...] - 02/22/2025 11:59 PM CDT Hospital Encounter [facility] Maternal & Care [address] [place], [place] [id number] Srinivas Levi MD Discharge Disposition: Home or [...] on file Legal Sex Female 6:38 AM PAPERHANGER ASSISTANT Gender Identity Not on file Sexual Orientation Not on file Last Filed Vital Signs Vital Sign Reading Time Taken Comments Blood Pressure 126/81 05/22/2020 12:17 PM PAPERHANGER ASSISTANT Pulse 86 05/22/2020 12:17 PM PAPERHANGER ASSISTANT Temperature 36.8 C (98.3 F) 05/18/2020 3:45 PM PAPERHANGER ASSISTANT Respiratory Rate 16 05/18/2020 3:45 PM PAPERHANGER ASSISTANT Oxygen Saturation 100% 05/18/2020 3:45 PM PAPERHANGER ASSISTANT Inhaled Oxygen Concentration - - Weight 111 kg (244 lb 11.2 oz) 05/18/2020 5:53 A M PAPERHANGER ASSISTANT Height 160 cm (5' 3) 05/17/2020 4:00 AM PAPERHANGER ASSISTANT Body Mass Index 43.35 05/17/2020 4:00 AM PAPERHANGER ASSISTANT Plan of Treatment Health Maintenance Due Date [...] History ====== OB History 2. Para 1 [id number] 1. live 2019. Gest. age 35 w [...] 1 lb 1 oz EFW by Hadlock ([id number]) appropriate Growth Overview Exam date GA BPD [...] view. RVOT view. LVOT view. 3-vessel view. 8-xxwlhj-dihbhac view. Situs. Aortic arch view. Bicaval view. [...] Z36.3: Encounter for screening for malformations Procedures 90901: US Preg Uterus Detailed 85549: US Preg Uterus Transvaginal [facility] [employer] PACS Anatomical Region Laterality Modality Other 02/22/2025 9:13 AM CDT Salvatore Cosme MD [facility] ORDERABLES Edited Result - Final from Last 3 Months Insurance [facility] Advance Directives * Full Code (Latest Code Status on File) Date Activated Date Inactivated Comments 05/14/2020 8:50 AM 05/18/2020 7:20 PM * Full Code Date Activated Date Inactivated Comments 05/10/2020 3:32 PM 05/14/2020 8:50 AM Care Teams Silk Conditioner Relationship Specialty Start Date End Date Jai Darby PA [address] [place] [address] PCP - General 03/01/21
--- OUTSIDE RECORDS SUMMARY | 2025-04-21 09:13 | XMS_ITS | Clinical Summary ---
Author Organization [facility] Address [address] [place] [address] Care Team Providers Care Sliver Chopper Name Role Phone Unknown, Notinfile Primary Care [...] on file Legal Sex Female 10:35 PM ROLLER TURNER Gender Identity Not on file Sexual Orientation [...] age to complete this topic Insurance [facility] Care Teams Sliver Chopper Relationship Specialty Start Date End Date Unknown, Notinfile PCP - General 10/20/24
[2025-04-21 10:26] LABS: Hematocrit 31.7 % (37.0-47.0); Hemoglobin 10.7 g/dL (12.0-15.0); Mean Corpuscular HGB Conc 33.8 g/dl (32-36); Mean Corpuscular Hemoglobin 32.1 pg (26-34); Mean Corpuscular Volume 95.2 fl (80-100); Platelet Count Result 320 k/mm3 (150-375); Red Blood Count 3.33 M/mm3 (4.2-5.4); White Blood Count 15.5 K/mm3 (4.5-10.0)
[2025-04-21 10:47] LABS: Glucose 1 Hour PP 50gm Dose 158 mg/dL
[2025-04-21 11:23] LABS: Syphilis IgG/IgM Antibody Non-Reactive (Nonreactive)
[2025-04-21 11:29] LABS: HIV 1/2 Ab P24 Ag Result Negative (Negative)
== END 2025-04-21 08:55 | disposition home or self-care (01) ==
LOC: ANHLAB 08:55
PROVIDERS: PCP Emergency Medicine; Visit Provider Student in an Organized Health Care Education/Training Program
DX: Z34.90 Encounter for supervision of normal pregnancy, unspecified, unspecified trimester (principal); Z3A.00 Weeks of gestation of pregnancy not specified
CPT/HCPCS: 36415; 82947; 85027; 86593; 86703; G0432

== ENCOUNTER 2025-04-26 08:38 | Outpatient (CLI) | payer OTHER, SELFPAY ==
[2025-04-26 09:13] LABS: Glucose Fasting Gestational 95 mg/dL (>/=95)
[2025-04-26 10:43] LABS: Glucose 1 Hour Gest 134 mg/dL (>/=180)
[2025-04-26 12:09] LABS: Glucose 2 Hour Gest 124 mg/dL (>/= 155)
[2025-04-26 12:39] LABS: Glucose 3 Hour Gest 103 mg/dL (>/=140)
== END 2025-04-26 08:39 | disposition home or self-care (01) ==
LOC: ANHLAB 08:40
PROVIDERS: PCP Emergency Medicine; Visit Provider Student in an Organized Health Care Education/Training Program
DX: Z34.90 Encounter for supervision of normal pregnancy, unspecified, unspecified trimester (principal); Z3A.00 Weeks of gestation of pregnancy not specified
CPT/HCPCS: 36415; 82951; 82952

== ENCOUNTER 2025-05-18 17:37 | Observation (INO) | payer OTHER, SELFPAY ==
[2025-05-18] VITALS (7 sets, daily range): BP systolic 115–123; BP diastolic 57–69; PULSE 91–100; TEMP 36.4; BMI 40.3
[2025-05-18 18:52] LABS: Add Urine Microscopic? YES; Appearance Urine Clear (Clear); Glucose Urine UA Negative (Negative); Leukocyte Esterase Ur 1+ LEU/UL (Negative); Nitrate Urine Negative (Negative); Non Pathogenic Casts 0-2; Specific Grav Ur 1.023 (1.001-1.035)
[2025-05-18 20:04] LABS: Fetal Fibronectin Negative
--- NOTE | 2025-05-18 20:12 | OBADM ---
This patient, Raquel Rios, admitted to the OB room OB Post 116 for observation. Patient/family oriented to hospital policies and general routines including ID bracelet, bed and alarms, visiting hours, pain management, procedures, bathroom and other care routines, personal items, smoking policy, room service/diet, and visiting hours. Patient/Family are encouraged to report perceived risks to care and to ask questions if they do not understand what they are told or what they should do.
--- NOTE | 2025-05-18 20:24 | PC.NURSE ---
Addendum entered by Carine Ott RN 05/18/25 20:30: 191- RN notified Dr. Hunter of patient arrival and patient complaints. RN notified MD of FHT tracing with moderate variability as well as accelerations. RN notified MD of frequency of contractions and that patient is rating them an 8/10 and feels them about 3 times an hour with lower abdominal pressure. RN notified MD that patient denies leaking of fluid or vaginal bleeding and has positive movement. RN notified MD of urine results. MD gave orders for an FFN and SVE. 2007- RN notified MD of FFN results as well as SVE and that external os felt about 3cm, but that internal os is 1cm and thick. RN also notified MD of thick white discharge noted during speculum exam. MD gave orders for d/c with labor precautions. 2023- RN at bedside discussing precautions with patient as well as plan of care. Patient has an appointment with Dr. Cosme tomorrow. Patient agrees with plan of care and discharge at this time. Original Note: 1912- RN notified Dr. Hunter of patient arrival and patient complaints. RN notified MD of FHT tracing with moderate variability as well as accelerations. RN notified MD of frequency of contractions and that patient is rating them an 8/10 and feels them about 3 times an hour with lower abdominal pressure. RN notified MD that patient denies leaking of fluid or vaginal bleeding and has positive movement. RN notified MD of urine results. MD gave orders for an FFN and SVE. 2007- RN notified MD of FFN results as well as SVE. MD gave orders for d/c with labor precautions. 2023- RN at bedside discussing precautions with patient as well as plan of care. Patient has an appointment with Dr. Cosme tomorrow. Patient agrees with plan of care and discharge at this time.
--- OUTSIDE RECORDS SUMMARY | 2025-05-18 21:13 | XMS_ITS | Data Portability ---
Author Organization ADRIAN Nicolas JARAMILLO Address [address] [place] [address] Care Team Providers Care Banking Pin Adjuster Name Role Phone JAI DARBY Primary Care Provider ILANA Gates Marketing And Communications Officer [phone] Assessment No assessment recorded. Plan of Treatment Reminders Order Date Submit Date Provider Last Modified By Organization Details Last Modified Time Details Appointments None recorde d. Lab HIV 1 + 2, meaning ful use set 2024 025 [facility], [address] [place] [address], [address], [place], [address], 5 08:24:03 RPR (rapid plasma reagin) , serum 2024 025 [facility], [address] [place] [address], [address], [place], [address], 5 08:24:02 HBsAg (hepati tis B surface Ag), EIA, serum 2024 025 [facility], [address] [facility], [address], [place], [address], 5 08:24:01 Hepatit is C IgG Ab, qual, serum 2024 025 [facility], [address] [place] [address], [address], [place], [address], 5 08:23:59 vaginal pathoge ns panel, ROBERT+pro be, vaginal fluid 2024 025 [facility], [address] [facility], [address], [place], [address], 5 10:37:05 pregnan cy test, urine 2024 025 [email or web address] In-Office Order, Internal Use Only DO Not Attach Compendium DO Not Attach Compendium, Do Not Delete/merge, [id number] 5 15:30:10 urinaly sis, dipstic k 2023 024 [email or web address] In-Office Order, Internal Use Only DO Not Attach Compendium DO Not Attach Compendium, Do Not Delete/merge, [id number] 4 18:46:59 CBC 2023 024 [facility], [address] [facility], [address], [place], [address], 4 06:18:43 pregnan cy test, urine 2023 024 [email or web address] In-Office Order, Internal Use Only DO Not Attach Compendium DO Not Attach Compendium, Do Not Delete/merge, [id number] 4 15:49:12 bacteri al vaginos is + vaginit is panel, vaginal 2023 024 [facility], [address] [facility], [address], [place], [address], 4 06:45:02 pregnan cy test, urine 2022 023 [email or web address] In-Office Order, Internal Use Only DO Not Attach Compendium DO Not Attach Compendium, Do Not Delete/merge, [id number] 3 17:14:25 Referral None recorde d. Procedures None recorde d. Surgeries None recorde d. Imaging None recorde d. Medication Orders Annover a 0.15 mg-0.01 3 mg/24 hr vaginal ring 2024 025 [facility], [address] [place] [address], [address], 5 09:25:20 Annover a 0.15 mg-0.01 3 mg/24 hr vaginal ring 2023 024 [id number], [address], [place], [place], [id number], 15:45:06 Patient TargetsNo targets recorded. Patient Instructions Encounter Date Encounter Id Patient Instructions Last Modified By Organization Details Last Modified Time 08/23/2024 [id number] Attending Physician Attestation S: 29 yo F here for control ring refill. No issues with use. Has knot on inside of groin that is decreasing in size; not bothersome. O: BP 124/76. BMI 36.7. A/P: Contraception management - Refilled home Annovera. I did not personally see or examine the patient with the resident. I was physically present to provide indirect supervision through entire encounter. Plan discussed with resident as documented in my brief note above. Maria E Sanders MD Not available 08/23/2024 15:21:44 Reason for Referral None Reported. Results Created Date Observation Date Name Description Value Unit Range Abnormal Flag Note LastModifiedBy Organization Detail LastModifiedTime 05/23/20 23 05/23/2023 pregn jose luis test, urine HCG negati ve Not Available In-Office Order Internal Use Only DO Not Attach Compendium DO Not Attach Compendium, Do Not Delete/merge, [id number] 05/23/2023 17:12:58 08/06/19 24 08/08/2023 NUSWA B BV ROBERT+C AND6+ CT/GC /T... atopobium vaginae Low - 0 score Not Available [facility] ([facility]) [address] [facility], [place], [address], 08/10/2023 06:45:01 08/06/19 24 08/08/2023 NUA B BV ROBERT+C AND6+ CT/GC /T... bvab 2 Low - 0 score Not Available [facility] ([facility]) [address] [place], [address], 08/10/2023 06:45:01 08/06/19 24 08/08/2023 NUA B BV ROBERT+C AND6+ CT/GC /T... megasphaera 1 Low - 0 score Calcu late total score by may lazo the 3 indiv idual bacte rial vagin osis (BV) marke r score s toget her. Total score is inter prete d as follo ws: Total score 0-1: Indic ates the absen ce of BV. Total score 2: Indet ermin ate for BV. Addit ional clini thom data shoul d be evalu ated to estab watson a diagn osis. Total score 3-6: Indic ates the prese nce of BV. This test was devel oped and its perfo rmanc e mellisa cteri stics deter mined by [facility]. It has not been clear ed or appro ziggy by the Food and Drug Admin istra tion. Not Available [facility] ([facility]) [address] [facility], [place], [address], 08/10/2023 06:45:01 08/06/19 24 08/08/2023 NUA B BV ROBERT+C AND6+ CT/GC /T... gaby albicans, ROBERT Negati ve negati ve Not Available [facility] ([facility]) [address] [place], [address], 08/10/2023 06:45:01 08/06/19 24 08/08/2023 NUA B BV ROBERT+C AND6+ CT/GC /T... gaby glabrata, ROBERT Negati ve negati ve Not Available [facility] ([facility]) [address] [place], [address], 08/10/2023 06:45:01 08/06/19 24 08/09/2023 NUSWA B BV ROBERT+C AND6+ CT/GC /T... C parapsilosis /tropicalis N negati ve This assay does not diffe renti ate C. tropi calis and C. parap avelino is. Not Available [facility] ([facility]) [address] [place], [address], 08/10/2023 06:45:01 08/06/19 24 08/09/2023 NUSWA B BV ROBERT+C AND6+ CT/GC /T... gaby lusitaniae, ROBERT N Not Available [facility] ([facility]) [address] [place], [address], 08/10/2023 06:45:01 08/06/19 24 08/09/2023 NUSWA B BV ROBERT+C AND6+ CT/GC /T... gaby krusei, ROBERT N Not Available [facility]) [address] [place], [address], 08/10/2023 06:45:01 08/06/19 24 08/09/2023 NUSWA B BV ROBERT+C AND6+ CT/GC /T... trich vag by ROBERT Negati ve negati ve Not Available [facility] ([facility]) [address] [place], [address], 08/10/2023 06:45:01 08/06/19 24 08/09/2023 NUSWA B BV ROBERT+C AND6+ CT/GC /T... chlamydia trachomatis, ROBERT Negati ve negati ve Not Available [facility] ([facility]) [address] [place], [address], 08/10/2023 06:45:01 08/06/19 24 08/09/2023 NUSWA B BV ROBERT+C AND6+ CT/GC /T... neisseria gonorrhoeae, ROBERT Negati ve negati ve Not Available [facility] ([facility]) [address] [facility], [place], [address], 08/10/2023 06:45:01 08/06/19 24 08/09/2023 NUSWA B BV ROBERT+C AND6+ CT/GC /T... hsv 1 ROBERT Negati ve negati ve Not Available [facility] ([facility]) [address] [facility], [place], [address], 08/10/2023 06:45:01 08/06/19 24 08/09/2023 NUSWA B BV ROBERT+C AND6+ CT/GC /T... hsv 2 ROBERT Negati ve negati ve Not Available [facility] ([facility]) [address] [facility], [place], [address], 08/10/2023 06:45:01 09/02/19 24 09/02/2023 CBC, PLATE LET, NO DIFFE RENTI AL WBC 12.8 x10e3 /uL 3.4-10 .8 above high normal Not Available [facility] [address] [place], [address], 09/03/2023 06:18:43 09/02/19 24 09/02/2023 CBC, PLATE LET, NO DIFFE RENTI AL RBC 4.14 x10e6 /uL 3.77-5 .28 Not Available [facility] Department [address] [place], [address], 09/03/2023 06:18:43 09/02/19 24 09/02/2023 CBC, PLATE LET, NO DIFFE RENTI AL hemoglobin 13.1 g/dL 11.1-1 5.9 Not Available [facility] [address] [place], [address], 09/03/2023 06:18:43 09/02/19 24 09/02/2023 CBC, PLATE LET, NO DIFFE RENTI AL hematocrit 39.9 % 34.0-4 6.6 Not Available [facility] Department [address] [place], [address], 09/03/2023 06:18:43 09/02/19 24 09/02/2023 CBC, PLATE LET, NO DIFFE RENTI AL MCV 96 fL 79-97 Not Available [facility] Department [address] [place], [address], 09/03/2023 06:18:43 09/02/19 24 09/02/2023 CBC, PLATE LET, NO DIFFE RENTI AL MCH 31.6 pg 26.6-3 3.0 Not Available [facility] Department [address] [place] [address], [address], 09/03/2023 06:18:43 09/02/19 24 09/02/2023 CBC, PLATE LET, NO DIFFE RENTI AL MCHC 32.8 g/dL 31.5-3 5.7 Not Available [facility] [address] [place], [address], 09/03/2023 06:18:43 09/02/19 24 09/02/2023 CBC, PLATE LET, NO DIFFE RENTI AL RDW 12.8 % 11.5-1 4.5 Not Available [facility] [address] [place], [address], 09/03/2023 06:18:43 09/02/19 24 09/02/2023 CBC, PLATE LET, NO DIFFE RENTI AL platelets 422 x10e3 /uL 150-45 0 Mean Plate let Volum e 10.4 fL 8.9-1 2.7 N Not Available [facility] Department [address] [place] [address], [address], 09/03/2023 06:18:43 09/02/19 24 09/02/2023 CBC, PLATE LET, NO DIFFE RENTI AL NRBC 0 % 0-0 Not Available [facility] [address] [place] [address], [address], 09/03/2023 06:18:43 09/02/1909/02/2023 pregn jose luis test, urine HCG negati ve Not Available In-Office Order Internal Use Only DO Not Attach Compendium DO Not Attach Compendium, Do Not Delete/merge, [id number] 09/02/2023 15:37:42 10/22/1910/23/2023 CBC WITH DIFFE RENTI AL/PL ATELE T WBC 11.9 x10e3 /uL 3.4-10 .8 above high normal Not Available [facility] ([facility]) [address] [facility], [place], [address], 10/23/2023 06:21:04 10/22/19 24 10/23/2023 CBC WITH DIFFE RENTI AL/PL ATELE T RBC 4.05 x10e6 /uL 3.77-5 .28 Not Available [facility] ([facility]) [address] [place], [address], 10/23/2023 06:21:04 10/22/1910/23/2023 CBC WITH DIFFE RENTI AL/PL ATELE T hemoglobin 12.7 g/dL 11.1-1 5.9 Not Available [facility] ([facility]) [address] [place], [address], 10/23/2023 06:21:04 10/22/1910/23/2023 CBC WITH DIFFE RENTI AL/PL ATELE T hematocrit 38.1 % 34.0-4 6.6 Not Available [facility] ([facility]) [address] [place], [address], 10/23/2023 06:21:04 10/22/1910/23/2023 CBC WITH DIFFE RENTI AL/PL ATELE T MCV 94 fL 79-97 Not Available [facility] ([facility]) [address] [place], [address], 10/23/2023 06:21:04 10/22/19 24 10/23/2023 CBC WITH DIFFE RENTI AL/PL ATELE T MCH 31.4 pg 26.6-3 3.0 Not Available [facility] ([facility]) [address] [facility], [place], [address], 10/23/2023 06:21:04 10/22/19 24 10/23/2023 CBC WITH DIFFE RENTI AL/PL ATELE T MCHC 33.3 g/dL 31.5-3 5.7 Not Available [facility] ([facility]) [address] [facility], [place], [address], 10/23/2023 06:21:04 10/22/19 24 10/23/2023 CBC WITH DIFFE RENTI AL/PL ATELE T RDW 13.0 % 11.7-1 5.4 Not Available [facility] ([facility]) [address] [facility], [place], [address], 10/23/2023 06:21:04 10/22/19 24 10/23/2023 CBC WITH DIFFE RENTI AL/PL ATELE T platelets 375 x10e3 /uL 150-45 0 Not Available [facility] ([facility]) [address] [facility], [place], [address], 10/23/2023 06:21:04 10/22/19 24 10/23/2023 CBC WITH DIFFE RENTI AL/PL ATELE T neutrophils 69 % notest ab. Not Available [facility] ([facility]) [address] [facility], [place], [address], 10/23/2023 06:21:04 10/22/19 24 10/23/2023 CBC WITH DIFFE RENTI AL/PL ATELE T lymphs 24 % notest ab. Not Available [facility] ([facility]) [address] [facility], [place], [address], 10/23/2023 06:21:04 10/22/19 24 10/23/2023 CBC WITH DIFFE RENTI AL/PL ATELE T monocytes 5 % notest ab. Not Available [facility] ([facility]) [address] [facility], [place], [address], 10/23/2023 06:21:04 10/22/19 24 10/23/2023 CBC WITH DIFFE RENTI AL/PL ATELE T eos 1 % notest ab. Not Available [facility] ([facility]) [address] [facility], [place], [address], 10/23/2023 06:21:04 10/22/19 24 10/23/2023 CBC WITH DIFFE RENTI AL/PL ATELE T basos 1 % notest ab. Not Available [facility] ([facility]) [address] [facility], [place], [address], 10/23/2023 06:21:04 10/22/19 24 10/23/2023 CBC WITH DIFFE RENTI AL/PL ATELE T neutrophils (absolute) 8.3 x10e3 /uL 1.4-7. 0 above high normal Not Available [facility] ([facility]) [address] [place], [address], 10/23/2023 06:21:04 10/22/19 24 10/23/2023 CBC WITH DIFFE RENTI AL/PL ATELE T lymphs (absolute) 2.8 x10e3 /uL 0.7-3. 1 Not Available [facility] ([facility]) [address] [place], [address], 10/23/2023 06:21:04 10/22/19 24 10/23/2023 CBC WITH DIFFE RENTI AL/PL ATELE T monocytes(ab solute) 0.6 x10e3 /uL 0.1-0. 9 Not Available [facility] ([facility]) [address] [place], [address], 10/23/2023 06:21:04 10/22/19 24 10/23/2023 CBC WITH DIFFE RENTI AL/PL ATELE T eos (absolute) 0.1 x10e3 /uL 0.0-0. 4 Not Available [facility] ([facility]) [address] [facility], [place], [address], 10/23/2023 06:21:04 10/22/19 24 10/23/2023 CBC WITH DIFFE RENTI AL/PL ATELE T baso (absolute) 0.1 x10e3 /uL 0.0-0. 2 Not Available [facility] ([facility]) [address] [facility], [place], [address], 10/23/2023 06:21:04 10/22/19 24 10/23/2023 CBC WITH DIFFE RENTI AL/PL ATELE T immature granulocytes 0 % notest ab. Not Available [facility] ([facility]) [address] [facility], [place], [address], 10/23/2023 06:21:04 10/22/19 24 10/23/2023 CBC WITH DIFFE RENTI AL/PL ATELE T immature grans (abs) 0.0 x10e3 /uL 0.0-0. 1 Not Available [facility] ([facility]) [address] [facility], [place], [address], 10/23/2023 06:21:04 11/14/19 24 11/15/2023 MICRO SCOPI C EXAMI NATIO N WBC None seen /hpf 0-5 Not Available [facility] ([facility]) [address] [facility], [place], [address], 11/15/2023 06:20:32 11/14/19 24 11/15/2023 MICRO SCOPI C EXAMI NATIO N RBC 0-2 /hpf 0-2 Not Available [facility] ([facility]) [address] [facility], [place], [address], 11/15/2023 06:20:32 06/07/20 24 11/15/2023 MICRO SCOPI C EXAMI NATIO N epithelial cells (non renal) 0-10 /hpf 0-10 Not Available [facility] ([facility]) [address] [facility], [place], [address], 11/15/2023 06:20:32 11/14/19 24 11/15/2023 MICRO SCOPI C EXAMI NATIO N casts None seen /lpf nonese en Not Available [facility] ([facility]) [address] [facility], [place], [address], 11/15/2023 06:20:32 11/14/19 24 11/15/2023 MICRO SCOPI C EXAMI NATIO N bacteria Few nonese en/few Not Available [facility] ([facility]) [address] [facility], [place], [address], 11/15/2023 06:20:32 11/14/19 24 11/15/2023 UA/M W/RFL X CULTU RE, COMP specific gravity 1.029 1.005- 1.030 Not Available [facility] ([facility]) [address] [facility], [place], [address], 11/15/2023 06:20:32 11/14/19 24 11/15/2023 UA/M W/RFL X CULTU RE, COMP pH 7.5 5.0-7. 5 Not Available [facility] ([facility]) [address] [facility], [place], [address], 11/15/2023 06:20:32 11/14/19 24 11/15/2023 UA/M W/RFL X CULTU RE, COMP urine-color YELLOW yellow Not Available [facility] ([facility]) [address] [facility], [place], [address], 11/15/2023 06:20:32 11/14/19 24 11/15/2023 UA/M W/RFL X CULTU RE, COMP appearance CLEAR clear Not Available [facility] ([facility]) [address] [facility], [place], [address], 11/15/2023 06:20:32 11/14/19 24 11/15/2023 UA/M W/RFL X CULTU RE, COMP WBC esterase NEGATI VE negati ve Not Available [facility] ([facility]) [address] [facility], [place], [address], 11/15/2023 06:20:32 11/14/19 24 11/15/2023 UA/M W/RFL X CULTU RE, COMP protein TRACE negati ve/tra ce Not Available [facility] ([facility]) [address] [facility], [place], [address], 11/15/2023 06:20:32 11/14/19 24 11/15/2023 UA/M W/RFL X CULTU RE, COMP glucose NEGATI VE negati ve Not Available [facility] ([facility]) [address] [facility], [place], [address], 11/15/2023 06:20:32 11/14/19 24 11/15/2023 UA/M W/RFL X CULTU RE, COMP ketones NEGATI VE negati ve Not Available [facility] ([facility]) [address] [facility], [place], [address], 11/15/2023 06:20:32 11/14/19 24 11/15/2023 UA/M W/RFL X CULTU RE, COMP occult blood NEGATI VE negati ve Not Available [facility] ([facility]) [address] [facility], [place], [address], 11/15/2023 06:20:32 11/14/19 24 11/15/2023 UA/M W/RFL X CULTU RE, COMP bilirubin NEGATI VE negati ve Not Available [facility] ([facility]) [address] [facility], [place], [address], 11/15/2023 06:20:32 11/14/19 24 11/15/2023 UA/M W/RFL X CULTU RE, COMP urobilinogen ,semi-qn 1.0 mg/dL 0.2-1. 0 Not Available [facility] ([facility]) [address] [facility], [place], [address], 11/15/2023 06:20:32 11/14/19 24 11/15/2023 UA/M W/RFL X CULTU RE, COMP nitrite, urine NEGATI VE negati ve Not Available [facility] ([facility]) [address] [facility], [place], [address], 11/15/2023 06:20:32 11/14/19 24 11/15/2023 UA/M W/RFL X CULTU RE, COMP microscopic examination COMMEN T Micro scopi c follo ws if indic ated. Not Available [facility] ([facility]) [address] [facility], [place], [address], 11/15/2023 06:20:32 11/14/19 24 11/15/2023 UA/M W/RFL X CULTU RE, COMP microscopic examination SEE BELOW: Micro scopi c was indic ated and was perfo rmed. Not Available [facility] ([facility]) [address] [facility], [place], [address], 11/15/2023 06:20:32 11/14/19 24 11/15/2023 UA/M W/RFL X CULTU RE, COMP urinalysis reflex COMMEN T This speci men will not refle x to a Urine Cultu re. Not Available [facility] ([facility]) [address] [place], [address], 11/15/2023 06:20:32 11/14/19 24 11/14/2023 urina lysis , dipst ick Leukocytes Negati ve Not Available In-Office Order Internal Use Only DO Not Attach Compendium DO Not Attach Compendium, Do Not Delete/merge, [id number] 10/29/2023 11:06:09 11/14/19 24 11/14/2023 urina lysis , dipst ick Nitrite negati ve Not Available In-Office Order Internal Use Only DO Not Attach Compendium DO Not Attach Compendium, Do Not Delete/merge, Critical [facility] hospital 10/29/2023 11:06:09 11/14/19 24 11/14/2023 urina lysis , dipst ick Urobilinogen 1 Not Available In-Of fice Order Internal Use Only DO Not Attach Compendium DO Not Attach Compendium, Do Not Delete/merge, Critical [facility] hospital 10/29/2023 11:06:09 11/14/19 24 11/14/2023 urina lysis , dipst ick Protein Negati ve Not Available In-Office Order Internal Use Only DO Not Attach Compendium DO Not Attach Compendium, Do Not Delete/merge, Critical access hospital 10/29/2023 11:06:09 11/14/19 24 11/14/2023 urina lysis , dipst ick pH 7.5 Not Available In-Office Order Internal Use Only DO Not Attach Compendium DO Not Attach Compendium, Do Not Delete/merge, Critical [facility] hospital 10/29/2023 11:06:09 11/14/19 24 11/14/2023 urina lysis , dipst ick Blood Negati ve Not Available In-Office Order Internal Use Only DO Not Attach Compendium DO Not Attach Compendium, Do Not Delete/merge, Critical [facility] hospital 10/29/2023 11:06:09 11/14/19 24 11/14/2023 urina lysis , dipst ick Specific [place] 1.025 Not Available In-Off ice Order Internal Use Only DO Not Attach Compendium DO Not Attach Compendium, Do Not Delete/merge, Critical access hospital 10/29/2023 11:06:09 11/14/19 24 11/14/2023 urina lysis , dipst ick Ketone Negati ve Not Available In-Office Order Internal Use Only DO Not Attach Compendium DO Not Attach Compendium, Do Not Delete/merge, Critical [facility] hospital 10/29/2023 11:06:09 11/14/19 24 11/14/2023 urina lysis , dipst ick Bilirubin Negati ve Not Available In-Office Order Internal Use Only DO Not Attach Compendium DO Not Attach Compendium, Do Not Delete/merge, Critical access hospital 10/29/2023 11:06:09 11/14/19 24 11/14/2023 urina lysis , dipst ick Glucose Negati ve Not Available In-Office Order Internal Use Only DO Not Attach Compendium DO Not Attach Compendium, Do Not Delete/merge, Critical access hospital 10/29/2023 11:06:09 11/14/19 24 11/14/2023 urina lysis , dipst ick Appearance Clear Not Available In-Offi ce Order Internal Use Only DO Not Attach Compendium DO Not Attach Compendium, Do Not Delete/merge, Critical access hospital 10/29/2023 11:06:09 11/14/19 24 11/14/2023 urina lysis , dipst ick Color Yellow Not Available In-Office Order Internal Use Only DO Not Attach Compendium DO Not Attach Compendium, Do Not Delete/merge, Critical access hospital 10/29/2023 11:06:09 11/14/19 24 11/14/2023 urina lysis , dipst ick Leukocytes Negati ve Not Available In-Office Order Internal Use Only DO Not Attach Compendium DO Not Attach Compendium, Do Not Delete/merge, Critical access hospital 11/14/2023 14:17:27 11/14/19 24 11/14/2023 urina lysis , dipst ick Nitrite negati ve Not Available In-Office Order Internal Use Only DO Not Attach Compendium DO Not Attach Compendium, Do Not Delete/merge, Critical access hospital 11/14/2023 14:17:27 11/14/19 24 11/14/2023 urina lysis , dipst ick Urobilinogen 1 Not Available In-Of fice Order Internal Use Only DO Not Attach Compendium DO Not Attach Compendium, Do Not Delete/merge, Critical access hospital 11/14/2023 14:17:27 11/14/19 24 11/14/2023 urina lysis , dipst ick Protein Negati ve Not Available In-Office Order Internal Use Only DO Not Attach Compendium DO Not Attach Compendium, Do Not Delete/merge, [id number] 11/14/2023 14:17:27 11/14/19 24 11/14/2023 urina lysis , dipst ick pH 7.5 Not Available In-Office Order Internal Use Only DO Not Attach Compendium DO Not Attach Compendium, Do Not Delete/merge, [id number] 11/14/2023 14:17:27 11/14/19 24 11/14/2023 urina lysis , dipst ick Blood Negati ve Not Available In-Office Order Internal Use Only DO Not Attach Compendium DO Not Attach Compendium, Do Not Delete/merge, [id number] 11/14/2023 14:17:27 11/14/19 24 11/14/2023 urina lysis , dipst ick Specific [place] 1.025 Not Available In-Off ice Order Internal Use Only DO Not Attach Compendium DO Not Attach Compendium, Do Not Delete/merge, Critical access hospital 11/14/2023 14:17:27 11/14/19 24 11/14/2023 urina lysis , dipst ick Ketone Negati ve Not Available In-Office Order Internal Use Only DO Not Attach Compendium DO Not Attach Compendium, Do Not Delete/merge, [id number] 11/14/2023 14:17:27 11/14/19 24 11/14/2023 urina lysis , dipst ick Bilirubin Negati ve Not Available In-Office Order Internal Use Only DO Not Attach Compendium DO Not Attach Compendium, Do Not Delete/merge, 11/14/2023 14:17:27 11/14/19 24 11/14/2023 urina lysis , dipst ick Glucose Negati ve Not Available In-Office Order Internal Use Only DO Not Attach Compendium DO Not Attach Compendium, Do Not Delete/merge, 11/14/2023 14:17:27 11/14/19 24 11/14/2023 urina lysis , dipst ick Appearance Clear Not Available In-Offi ce Order Internal Use Only DO Not Attach Compendium DO Not Attach Compendium, Do Not Delete/merge, [id number] 11/14/2023 14:17:27 11/14/19 24 11/14/2023 urina lysis , dipst ick Color Yellow Not Available In-Office Order Internal Use Only DO Not Attach Compendium DO Not Attach Compendium, Do Not Delete/merge, [id number] 11/14/2023 14:17:27 08/24/1908/24/2024 INTER PRETA TION: interpretati on: Commen t Not infec tigist with HCV unles s early or acute infec tion is suspe cted (whic h may be delay ed in an immun ocomp romis ed indiv idual ), or other evide nce exist s to indic ate HCV infec tion. Not Available [facility] ([facility]) [address], [place], [address], 08/24/2024 08:23:59 08/24/19 25 08/24/2024 HCV ANTIB TIFFANY RFX TO QUANT PCR HCV Ab NON REACTI VE nonrea ctive Not Available [facility] ([facility]) [address], [place], [address], 08/24/2024 08:23:59 08/24/19 25 08/24/2024 HBSAG SCREE N HBsAg screen NEGATI VE negati ve Not Available [facility] ([facility]) [address], [place], [address], 08/24/2024 08:24:00 08/24/19 25 08/24/2024 RPR, RFX QN RPR/C ONFIR M TP RPR NON REACTI VE nonrea ctive Not Available [facility] ([facility]) [address] [place], [address], 08/24/2024 08:24:02 08/24/19 25 08/24/2024 HIV AB/P2 4 AG WITH REFLE X HIV Ab/P24 Ag screen NON REACTI VE nonrea ctive HIV-1 /HIV- 2 antib odies and HIV-1 p24 antig en were NOT detec tigist. There is no labor atory evide nce of HIV infec tion. HIV Negat windy Not Available [facility] ([facility]) [address], [place], [address], 08/24/2024 08:24:03 08/24/19 25 08/24/2024 NUSWA B VAGIN ITIS PLUS (VG+) atopobium vaginae LOW - 0 score Not Available [facility] ([facility]) [address], [place], [address], 08/25/2024 10:37:04 08/24/19 25 08/24/2024 NUSWA B VAGIN ITIS PLUS (VG+) bvab 2 LOW - 0 score Not Available [facility] ([facility]) [address], [place], [address], 08/25/2024 10:37:04 08/24/19 25 08/24/2024 NUA B VAGIN ITIS PLUS (VG+) megasphaera 1 LOW - 0 score Calcu late total score by may g the 3 indiv idual bacte rial vagin osis (BV) marke r score s toget her. Total score is inter prete d as follo ws: Total score 0-1: Indic ates the absen ce of BV. Total score 2: Indet ermin ate for BV. Addit ional clini thom data shoul d be evalu ated to estab watson a diagn osis. Total score 3-6: Indic ates the prese nce of BV. Not Available [facility] ([facility]) [address], [place], [address], 08/25/2024 10:37:04 08/24/19 25 08/25/2024 NUSWA B VAGIN ITIS PLUS (VG+) gaby albicans, ROBERT POSITI VE negati ve abnormal Not Available [facility] ([facility]) [address], [place], [address], 08/25/2024 10:37:04 08/24/19 25 08/25/2024 NUSWA B VAGIN ITIS PLUS (VG+) gaby glabrata, ROBERT NEGATI VE negati ve Not Available [facility] ([facility]) [address], [place], [address], 08/25/2024 10:37:04 08/24/19 25 08/25/2024 NUA B VAGIN ITIS PLUS (VG+) trich vag by ROBERT NEGATI VE negati ve Not Available [facility] ([facility]) [address], [place], [address], 08/25/2024 10:37:04 08/24/19 25 08/25/2024 NUA B VAGIN ITIS PLUS (VG+) chlamydia trachomatis, ROBERT NEGATI VE negati ve Not Available [facility] ([facility]) [address], [place], [address], 08/25/2024 10:37:04 08/24/19 25 08/25/2024 NUA B VAGIN ITIS PLUS (VG+) neisseria gonorrhoeae, ROBERT NEGATI VE negati ve Not Available [facility] ([facility]) [address], [place], [address], 08/25/2024 10:37:04 08/24/19 25 08/23/2024 pregn jose luis test, urine HCG negati ve Not Available In-Office Order Internal Use Only DO Not Attach Compendium DO Not Attach Compendium, Do Not Delete/merge, [id number] 08/23/2024 15:29:37 08/23/19 24 08/23/2023 CT, abdom en + pelvi s, w/o contr ast No observ ation record ed. [address], [place], [address], 08/25/2023 18:33:45 08/23/19 24 08/23/2023 US, pelvi s No observ ation record ed. [address], [place], [address], 08/25/2023 18:33:45 08/23/19 24 08/23/2023 US, trans vagin al No observ ation record ed. [facility] [address], [place], [address], 08/25/2023 18:33:46 12/09/19 25 12/08/2024 US, obste tric No observ ation record ed. [address], [place], [address], 12/13/2024 14:15:49 Result Notes None recorded. Problems Name Problem SNOMED Code Status Onset Date Resolution Date Notes Provider Name and Address Organization Details Recorded Time Gastritis 0394248 Active LITTLE Kaur Attn: Ronaljeramy clifton,[address] [facility], [place], [address], [facility] 6 14:52:56 Chest pain 39006386 Active LITTLE Karu Attn: Accountin g,[address] [facility], [place], [address], [facility] 6 14:52:56 Pharyngit is 550982044 Active LITTLE Kaur Attn: Accountin g,[address] [facility], [place], [address], [facility] 6 14:52:56 Viral syndrome 759730501 Active LITTLE Kaur Attn: Accountin g,[address] [facility], [place], [address], [facility] 6 14:52:56 Follow-up visit Active LITTLE Kaur Attn: Accountin g,[address] [facility], [place], [address], [facility] 6 15:03:19 Nausea and vomiting 12678248 Active 2018 Jai Darby PA-C Attn: Accountin g,[address] [facility], [place], [address], [facility] 9 11:58:33 Chronic folliculi tis 242155310 Active 2018 Jai Darby PA-C Attn: Lisa lazo,[address] [facility], [place], [address], [place] [facility] 9 12:12:03 Administr ation of influenza vaccine Active 2018 Jai Darby PA-C Attn: Lisa lazo,[address] [facility], [place], [address], [place] [facility] 9 12:18:15 Obese 699632135 Active 2018 Jai Darby PA-C Attn: Lisa lazo,[address] [facility], [place], [address], [place] [facility] 9 12:23:11 White blood cell count outside reference range 425368376 Active 2018 Jai Darby PA-C Attn: Lisa lazo,[address] [facility], [place], [address], [place] [facility] 9 12:56:01 Gastroeso phageal reflux disease 196350931 Active 2018 Jai Darby PA-C Attn: Lisa lazo,[address] [facility], [place], [address], [place] [facility] 9 17:17:01 [id number] Completed 201905/29/2020 Mesha Sn[place] [facility] 0 16:00:11 Group B Streptoco ccus carrier [id number] Completed 2019 Ayanna Calderon MD Attn: Ronaljeramy lazo,[address] [facility], [place], [address], [place] [facility] 1 12:24:46 Group B Streptoco ccus carrier [id number] 3 Active 2019 Ayanna Calderon MD Attn: Lisa lazo,[address] [facility], [place], [address], [place] [facility] 1 12:24:46 Marijuana user 673817768 Active 2019 Ayanna Calderon MD Attn: Lisa lazo,[address] [facility], [place], [address], [place] [facility] 1 12:24:45 Varicella non-immun e 772442140 Completed 2019 Ayanna Calderon MD Attn: Lisa lazo,[address] [facility], [place], [address], [place] [facility] 1 12:24:46 Varicella non-immun e 367223629 Active 2019 Ayanna Calderon MD Attn: Lisa lazo,[address] [facility], [place], [address], [place] [facility] 1 12:24:46 Marijuana user 518980653 Completed 2019 Ayanna Calderon MD Attn: Ronlajeramy lazo,[address] [facility], [place], [address], [place] [facility] 1 12:24:45 Pre-eclam psia 629848496 Completed 201911/28/2020 Kevin Sousa MD Attn: Ronaljeramy lazo,[address] [facility], [place], [address], [place] [facility] 1 11:27:51 Gestation al proteinur ia 55139717 Completed 201911/28/2020 8 grams Kevin Sousa MD Attn: Ronaljeramy lazo,[address] [facility], [place], [address], [place] [facility] 1 11:28:28 -induced hypertens ion 98658924 Active 2019 Ayanna Calderon MD Attn: Ronaljeramy lazo,[address] [facility], [place], [address], [place] [facility] 1 12:24:46 -induced hypertens ion 81469591 Completed 2019 Ayanna Calderon MD Attn: Lisa clifton,[address] [facility], [place], [address], [place] [facility] 12:24:46 Headache 46569776 Active 2020 Jai Darby PA-C Attn: Lisa lazo,[address] [place], [address], [place] [facility] 16:43:03 Allergic rhinitis 55280640 Active 2020 Jai Darby PA-C Attn: Lisa g,[address] [place], [address], [place] [facility] 12:50:25 Syncope and collapse 483194541 Active 2020 Prashant Muller MD [address], [place], [address], [place] [facility] 13:28:35 Dizziness and giddiness 418312853 Active 2020 Prashant Muller MD [address], [place], [address], [place] [facility] 13:28:39 Anterior chest wall pain 136472128 Active 2020 Prashant Muller MD [address], [place], [address], [place] [facility] 13:28:40 Cervical spine tender 874330482 Active 2020 Prashant Muller MD [address], [place], [address], [place] [facility] 13:28:42 Chronic back pain 119735129 Active 2020 Prashant Muller MD [address], [place], [address], [place] [facility] 13:28:43 Tension-t ype headache 565984500 Active 2020 Prashant Muller MD [address], [place], [address], [place] [facility] 13:28:46 Essential hypertens ion 74637262 Active 2020 Prashant Muller MD [address] [place], [address], 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 Procedures Surgical History Date Name Laterality Status Provider Name and Address Organization Details Recorded Time 3 Date of Last Pap Smear completed Mesha Snider MA DC - [facility] 08/29/2022 11:43:38 Carpal tunnel surgery completed Nicole Piper MA DC - [facility] 08/06/2023 11:32:08 Imaging Results None recorded. Procedure Notes None recorded. Medical Equipment None Reported. Allergies No known drug allergies Medications Name Sig Start Date Stop Date Status Note LastModified by Organization Details LastModified Time amoxicill in 500 mg capsule TAKE 1 CAPSULE BY MOUTH THREE TIMES DAILY FOR 10 DAYS active Not Available Not Available No t Available azithromy guerita 250 mg tablet TAKE 2 TABLETS BY MOUTH FOR 1 DAY THEN TAKE 1 TABLET BY MOUTH EVERY DAY AFTER A MEAL FOR 4 DAYS 05/23 completed Not Available Not Available Not Available fluconazo le 150 mg tablet TAKE 1 TABLET BY MOUTH EVERY 72 HOURS active Not Available Not Available No t Available benzonata te 200 mg capsule TAKE 1 CAPSULE BY MOUTH THREE TIMES DAILY FOR 7 DAYS NEEDED 05/13 completed Not Available Not Available Not Available hydrocodo ne 5 mg-acetam inophen 325 mg tablet TAKE 1 TABLET BY MOUTH EVERY 6 HOURS NEEDED FOR PAIN 09/01 completed Not Available Not Available Not Available ondansetr on HCl 4 mg tablet TAKE 1 TABLET BY MOUTH EVERY 6 HOURS NEEDED FOR NAUSEA OR VOMITING active Not Available Not Available No t Available prednison e 20 mg tablet TAKE 2 TABLETS BY MOUTH DAILY FOR 5 DAYS 08/23 completed Not Available Not Available Not Available propranol ol ER 60 mg capsule,2 4 hr,extend ed release TAKE 1 CAPSULE BY MOUTH EVERY DAY BEFORE A MEAL 05/13 completed Not Available Not Available Not Available naproxen 250 mg tablet TAKE 1 TABLET BY MOUTH TWICE DAILY 05/13 completed Not Available Not Available Not Available metronida zole 500 mg tablet TAKE 1 TABLET BY MOUTH EVERY 12 HOURS 09/01 completed Not Available Not Available Not Available acetamino phen 300 mg-codein e 30 mg tablet TAKE 1 TABLET BY MOUTH EVERY 6 HOURS NEEDED 08/23 completed Not Available Not Available Not Available ciproflox acin 500 mg tablet TAKE 1 TABLET BY MOUTH TWICE DAILY FOR 10 DAYS 11/20 completed Not Available Not Available Not Available sulfameth oxazole 800 mg-trimet hoprim 160 mg tablet TAKE 1 TABLET BY MOUTH EVERY 12 HOURS FOR 7 DAYS 08/23 completed Not Available Not Available Not Available aspirin 81 mg tablet,de layed release TAKE 2 TABLETS BY MOUTH DAILY active Not Available Not Available No t Available tramadol 50 mg tablet 10/17 completed Not Available Not Available Not Available amoxicill in 500 mg tablet TAKE 1 TABLET BY MOUTH TWICE DAILY 01/30 completed Not Available Not Available Not Available ketorolac 10 mg tablet TAKE 1 TABLET BY MOUTH EVERY 6 HOURS FOR 5 DAYS NEEDED 08/14 completed Not Available Not Available Not Available Vitamin tablet Take 1 tablet every day by oral route as directed for 90 days. 06/28 completed 11/30/19 [facility]. [facility] Pt is taking the One a Day OTC Vitamins . Not Available Not Available Not Available amoxicill in 875 mg tablet TAKE 1 TABLET BY MOUTH EVERY 12 HOURS FOR 10 DAYS 05/23 completed Not Available Not Available Not Available famotidin e 20 mg tablet Take 1 tablet twice a day by oral route as directed . 10/24 completed Not Available Not Available Not Available metoclopr amide 5 mg tablet TAKE 1 TABLET BY MOUTH DAILY active Not Available Not Available No t Available DOK 100 mg capsule Take 1 capsule twice a day by oral route as needed. 06/28 completed Not Available Not Available Not Available cephalexi n 500 mg capsule TAKE 1 CAPSULE BY MOUTH EVERY 6 HOURS FOR 7 DAYS active Not Available Not Available No t Available erythromy guerita 5 mg/gram (0.5 %) eye ointment APPLY 1/2 INCH INTO BOTH EYES FOUR TIMES DAILY FOR 7 DAYS active Not Available Not Available No t Available oseltamiv ir 75 mg capsule TAKE 1 CAPSULE BY MOUTH TWICE DAILY FOR 5 DAYS 09/01 completed Not Available Not Available Not Available omeprazol e 20 mg capsule,d elayed release Take 1 capsule every day by oral route before meals for 30 days. 10/24 completed Not Available Not Available Not Available Tylenol 325 mg tablet Take 1 tablet every 8 hours by oral route. 01/30 completed Not Available Not Available Not Available ibuprofen 600 mg tablet TAKE 1 TABLET BY MOUTH EVERY 6 HOURS 10/25 completed Not Available Not Available Not Available methylpre dnisolone 4 mg tablets in a dose pack FOLLOW PACKAGE DIRECTIO NS WITH FOOD 05/23 completed Not Available Not Available Not Available nifedipin e ER 60 mg tablet,ex tended release TAKE 1 TABLET BY MOUTH EVERY DAY ON AN EMPTY STOMACH 06/28 completed Not Available Not Available Not Available ondansetr on 4 mg disintegr ating tablet DISSOLVE 1 TABLET ON THE TONGUE EVERY 8 HOURS 08/23 completed Not Available Not Available Not Available fluticaso ne propionat e 50 mcg/actua tion nasal spray,eleazar pension SHAKE LIQUID AND USE 1 SPRAY IN EACH NOSTRIL TWICE DAILY 05/13 completed Not Available Not Available Not Available loratadin e 10 mg tablet TAKE 1 TABLET BY MOUTH EVERY DAY 05/13 completed Not Available Not Available Not Available naproxen 500 mg tablet TAKE 1 TABLET BY MOUTH TWICE DAILY WITH MEALS 09/01 completed Not Available Not Available Not Available Tablet 28 mg iron-800 mcg Take 1 tablet every day by oral route. 09/24 completed Not Available Not Available Not Available 28 mg iron-800 mcg tablet 11/01 completed Not Available Not Available Not Available Fiber (psyllium husk-suga r) 3.4 gram/7 gram oral powder Take 1 tbsp every day by oral route. 06/28 completed Not Available Not Available Not Available Slynd 4 mg (28) tablet TAKE 1 TABLET BY MOUTH EVERY DAY 01/30 completed Not Available Not Available Not Available Annovera 0.15 mg-0.013 mg/24 hr vaginal ring INSERT RING VAGINALL Y EVERY MONTH FOR 21 DAYS AND THEN REMOVE FOR 7 DAYS, REPEAT MONTHLY RINSING RING INBETWEE N CYCLES FOR UP TO 13 CYCLES 2024 active Not Available Not Available Not Avai lable Vitals Date Recorded Body height Body mass index (BMI) Body weight Oxygen saturation Heart rate Systolic And Diastolic Provider Name and Address Organization Details Last Updated DateTime 4 160.02 cm 34.9 kg/m2 84678.7 g 99 % 76 /min 104/68 mm[Hg] Nicole Piper MA [facility] 4 11:33:51 Date Recorded Body height Body mass index (BMI) Body weight Systolic And Diastolic Provider Name and Address Organization Details Last Updated DateTime 08/23/2024 160.02 cm 36.7 kg/m2 94305.67 g 124/76 mm[Hg] Lita Carcamo MA [facility] 08/23/2024 15:14:07 Date Recorded Body height Body mass index (BMI) Body weight Oxygen saturation Heart rate Systolic And Diastolic Provider Name and Address Organization Details Last Updated DateTime 4 160.02 cm 34.7 kg/m2 46135.1 g 100 % 94 /min 108/70 mm[Hg] Nicole Piper MA [facility] 4 15:11:35 Date Recorded Body height Body mass index (BMI) Body weight Systolic And Diastolic Provider Name and Address Organization Details Last Updated DateTime 05/23/2023 160.02 cm 34.5 kg/m2 05834.51 g 98/62 mm[Hg] Mesha Snider MA [facility] 05/23/2023 17:11:18 Social History Question Answer Notes LastModified by Organizat ion Details LastModified Time Tobacco Smoking Status Former Smoker Lita Carcamo MA null, [facility] 08/23/2024 15:12:36 Do You Have An Advance Directive? No Information not available 10/17/2016 Are You Blind Or Do You Have Difficulty Seeing? Yes Wears Glasses Information not available 10/10/2020 Is Blood Transfusion Acceptable In An Emergency? Yes Information not available 10/17/2016 What Is Your Level Of Caffeine Consumption? None Information not available 11/02/2019 How Much Tobacco Do You Chew? None Information not available 10/17/2016 Are You Deaf Or Do You Have Serious Difficulty Hearing? No Information not available 10/10/2020 What Type Of Diet Are You Following? REGULAR Information not available 02/10/2015 Which Illicit Or Recreational Drugs Have You Used? Patsy 10/09/19 Pt Stopped Using Information not available 11/02/2019 Education 12 Information not available 10/17/2016 Are There Any Guns Present In Your Home? No [email or web address] Information not available 07/06/2018 Live Alone Or With Others? With Others Information not available 10/17/2016 What Was The Date Of Your Most Recent Tobacco Screening? 08/23/2024 Information not available 08/23/2024 How Many Children Do You Have? 0 Information not available 10/17/2016 Performs Monthly Self-breast Exam? No Information not available 10/17/2016 Do You Use Protection During Sex? Usually Information not available 02/10/2015 What Is Your Relationship Status? Single Information not available 10/17/2016 Do You Use Your Seat Belt Or Car Seat Routinely? Yes [email or web address] Information not available 12/13/2014 Seat Belts Used Routinely Yes Information not available 10/17/2016 Are You Sexually Active? Yes Information not available 02/10/2015 Do You Have Smoke And Carbon Monoxide Detectors In Your Home? Yes [email or web address] Information not available 12/13/2014 Are You Passively Exposed To Smoke? No [email or web address] Information not available 12/13/2014 How Much Tobacco Do You Smoke? No Information not available 04/17/2020 General Stress Level Low Information not available 11/02/2019 Do You Use Sunscreen Routinely? No Information not available 10/17/2016 Has Tobacco Cessation Counseling Been Provided? Yes [email or web address] Information not available 10/24/2020 On What Date Was Tobacco Cessation Counseling Provided? 08/23/2024 Information not available 08/23/2024 Year In School 11 Informatio n not available 02/10/2015 Sex: Female Functional Status Question Answer Note LastModified by Organizat ion Details LastModified Time Do you use any illicit or recreational drugs? Yes marijuana Information not available 08/29/2022 Do you or have you ever used any other forms of tobacco or nicotine? No Information not available 08/29/2022 What is your level of alcohol consumption? None Information not available 02/10/2015 Do you or have you ever used smokeless tobacco? Never used smokeless tobacco Information not available 04/17/2020 Are you currently employed? Yes Information not available 10/17/2016 Are you able to care for yourself independently? Yes Information not available 10/10/2020 What is your occupation? [employer] Information not available 04/17/2020 Do you or have you ever used e-cigarettes or vape? Former user of electronic cigarettes Information not available 08/23/2024 What is your exercise level? Occasional Information not available 02/10/2015 Mental Status Question Answer Note LastModified by Organization D etails LastModified Time Do you feel stressed (tense, restless, nervous, or anxious, or unable to sleep at night)? [id number] Information not available 10/10/2020 Family History Relationship Description Onset Age of this Age Resolved Age Notes LastModified by Organization Details LastModified Time Maternal Grandmother Essential hypertension [email or web address] Not available 14:53:14 Maternal Grandmother Rheumatoid arthritis [email or web address] Not available 02/20 14:53:14 Maternal Grandmother Kidney disease on dialys is [email or web address] Not available 11/28/2020 11:29:11 Maternal Grandmother Systemic lupus erythematosu s [email or web address] Not available 2020 11:29:24 Mother Rheumatoid arthritis [email or web address] Not available 02/20 14:53:14 Maternal Aunt Malignant neoplasm of breast [email or web address] Not available 2016 09:54:12 Medical History Condition Response Coronary Artery Disease N Other N Atrial Fibrillation N High Blood Pressure N Blood Diseases N Breast Cancer N COPD N Blood Clots N Depression N Lung Disease N Developmental or Behavioral Disorders N Breast Problem N Premature N Anesthesia Complications N Headaches/Migraines N Anxiety Disorder N Muscle, Joint, or Bone Problems N Vision or Eye Problems N Head Injury/Concussion N Polyps N Infertility N Acid Reflux (GERD) N Cancer N Stroke N ADHD N Endometriosis N Bladder or Kidney Problems N High Cholesterol N Liver Disease N Headaches N Ear or Hearing Problems N Thyroid Problems N Kidney or Bladder Problems N GI Problems N Acne N Skin Problems N Eating Disorder N Anemia N Constipation N Heart Attack ([place]) N Ovarian Cancer N Diabetes N Bedwetting N Blood Transfusions N Seizures/Epilepsy N Heart Problems/Murmur N Abuse/Domestic Violence N Allergies N Asthma N Hepatitis N Heart Disease N Pre-Eclampsia N Osteoporosis N Heart Failure N Chicken Pox N Autism Spectrum Disorder (ASD) N Gynecological History Statement/Question Response Flow Moderate Date of LMP 07/31/2024 On BCP's at Conception? N STIs/STDs N HPV Vaccine Y Duration of Flow (days) 4 Age at Menarche 13 Current Control Method Vaginal Rin g Age at First Child 25 Frequency of Cycle (Q days) 30 Sexually Active? Y Menses Monthly Y Date of Last Pap Smear 08/29/2022 Sexual Problems? N LMP Approximate Obstetrics History GPAL:G 1 P 0 1 0 1 Type Value Multiple Births 0 Full Term 0 Induced 0 Spontaneous 0 Premature 1 Living 1 Ectopics 0 Total 1 Immunizations Vaccine Type Date Status Note Provider Nam e and Address Organization Details Recorded Time HPV9 6 completed Not Available [facility] 06/26/2019 02:42:00 Hep B, unspecified formulation 7 completed [place] [facility] 11/14/2014 16:05:03 IPV 8 completed [place] [facility] 11/14/2014 16:05:03 Hib, unspecified formulation 8 completed [place] [facility] 11/14/2014 16:05:03 varicella 9 completed [place] [facility] 11/14/2014 16:05:03 MMR 9 completed [place] [facility] 11/14/2014 16:05:03 DTP 8 completed [place] [facility] 11/14/2014 16:05:03 IPV 8 completed [place] [facility] 11/14/2014 16:05:03 DTP 8 completed [place] [facility] 11/14/2014 16:05:03 MMR 2 completed [place] [facility] 11/14/2014 16:05:03 DTP 8 completed [place] [facility] 11/14/2014 16:05:03 IPV 1 completed [place] [facility] 11/14/2014 16:05:03 Influenza, high-dose, trivalent, PF 3 completed [place] [facility] 11/14/2014 16:05:03 Hep B, unspecified formulation 8 completed [place] [facility] 11/14/2014 16:05:03 Td(adult) unspecified formulation 1 completed [place] [facility] 11/14/2014 16:05:03 Hib, unspecified formulation 8 completed [place] [facility] 11/14/2014 16:05:03 varicella 1 completed [place] [facility] 11/14/2014 16:05:03 DTP 1 completed [place], [place] [facility] 11/14/2014 16:05:03 Hep A, ped/adol, 2 dose 1 [place] [facility] 11/14/2014 16:05:03 Hep B, unspecified formulation 8 completed [place] [facility] 11/14/2014 16:05:03 HPV, unspecified formulation 4 completed [place] [facility] 11/14/2014 16:05:03 Influenza, high-dose, trivalent, PF 2 completed [place] [facility] 11/14/2014 16:05:03 meningococcal ACWY, unspecified formulation 2 completed [place] [facility] 11/14/2014 16:05:03 Hib, unspecified formulation 1 completed [place] [facility] 11/14/2014 16:05:03 DTP 2 completed [place] [facility] 11/14/2014 16:05:03 IPV 2 completed [place] [facility] 11/14/2014 16:05:03 meningococcal ACWY, unspecified formulation 1 completed [place] [facility] 11/14/2014 16:05:03 Hep A, ped/adol, 2 dose 3 completed [place] [facility] 11/14/2014 16:05:03 Hib, unspecified formulation 8 completed [place] [facility] 11/14/2014 16:05:03 Influenza, split virus, quadrivalent, preservative 9 completed Not Available [facility] 06/26/2019 02:37:00 HPV, quadrivalent 5 completed Not Available [facility] 06/26/2019 02:43:08 Tdap 0 completed Edilia Chavez [place] [facility] 03/27/2020 11:37:26 Influenza, split virus, quadrivalent, preservative 0 completed Edilia Ch[place] [facility] 03/27/2020 11:38:40 Influenza, split virus, quadrivalent, PF 5 completed Not Available [facility] 06/26/2019 02:32:08 meningococcal MCV4P 5 completed Not Available [facility] 06/26/2019 02:29:55 Past Encounters Encounter ID Performer Location Encounter Start Date Encounter Closed Date Diagnosis/Indication Diagnosis SNOMED-CT Code Diagnosis ICD10 Code Diagnosis IMO Codes Diagnosis Note [id number] Theresa Osorio MD [address] [address] 12/13/2014 10:52:37 12/15/2014 17:37:02 [facility] [id number] Theresa sOorio MD [place] [id number] 3 02/10/2015 16:44:07 02/15/2015 18:06:10 Pharyngitis [id number] Well child [id number] Theresa Osorio MD [place] [id number] 3 04/10/2015 12:29:01 04/12/2015 14:29:41 Viral syndrome 128468271 B34.9 [id number] LITTLE Kaur [place] [id number] 3 02/21/2016 14:16:24 02/21/2016 15:16:19 Follow-up visit 302046033 Z09 S/P ABT for UTI. Pt. denies any symptoms today. Repeat dipstick negative. Reinforcem ent r/t hygiene and hydration Active or passive immunization 310520536 Z23 VIS reviewed/g iven 3rd and final dose today. Tolerated well. [id number] Rossy Bocanegra MD [address] [address] 10/17/2016 09:36:26 10/17/2016 10:21:48 Gynecologic examination 40397071 Z01.419 Obesity 129672891 E66.9 Reviewed dietary and exercise. Patient eating late nights. Encouraged to change this behavior. Contracept ion education 684346311 Z30.09 Reviewed options. Patient unsure and will return when decided. Discussed condoms to prevent STDs. [id number] Jay Alvarado MD [place] [id number] 3 01/03/2017 11:21:16 01/03/2017 14:02:36 Amenorrhea 53364410 N91.2 She is 3 days late. Urine negative Obesity 058308152 E66.9 25+ weight gain in less than 10 months, likely because she is more sedentary Lisping 01139036 F80.0 Baseline [id number] Rossy Bocanegra MD [address] [address] 02/12/2017 15:49:10 02/12/2017 16:43:42 Contraception education 932063597 Z30.09 Reviewed options. Patient opts for IUD. Patient will return for Candelaria IUD insertion. Discussed condoms to prevent STDs. [id number] [facility] [address] [place] [address] 0 06/22/2018 11:28:49 06/22/2018 12:37:03 Nausea and vomiting 55025856 R11.2 Chronic folliculitis 123 343892 L73.9 Administra tion of influenza vaccine 24261547 Z23 Obese 772454185 E66.9 [id number] MD Pineda Keller (DAYCARE TEACHER) [address] [place] [address] 0 07/06/2018 14:58:06 07/06/2018 16:51:27 Gynecologic examination 36686890 Z01.419 Age appropriat e counseling done. Obese 126698692 E66.9 Counseled About weight loss, diet and excercise. Advised patient to f/u with fare enforcement officer. Family glenda nning surveillance 682284711 Z30.09 Counseled patient about different forms of control methods including Condoms, OCPS, Depo Provera, Nuva ring, patch, Nexplanon, IUD, -- etc. Patient refused any form of control at this time. She say she will call if she decided to start control. [id number] [facility] [address] [place] [phone] 0 07/20/2018 11:43:47 07/23/2018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 Station neg none 28 wks none negative none neg Type Weight in lbs Pre/Post Dialysis Refused Weight 217.941490742863 BP Diastolic BP Location Tested BP Systolic BP Type 72 118 sitting Fetus Heart Rate Present A 131 Present Fetus Movement A Yes Comments ESTEFANÍA at 28 weeks. Pt denies c ontractions, LOF. + movements. GCT completed today. Tdap and flu vaccine administered today. Kick counts discussed. Order for 3rd trimester US given. Flowsheet Date 04/12/2020 Angela Score Blood Edema Fundus Height Fundus Units Glucose Ketones Leukocytes Nitrite Labor Signs Protein Cervic Dilation Cervic Effacement Cervic Station neg none 30 wks none negative none neg Type Weight in lbs Pre/Post Dialysis Refused Weight 221.126051801506 BP Diastolic BP Location Tested BP Systolic BP Type 60 98 sitting Fetus Heart Rate Present A 135 Present Fetus Movement A Yes Comments 24yo primigravida f at 30.2 weeks. +FM. Denies contractions, vaginal bleeding, discharge, LOF. PT has 3rd trimester US scheduled for Saturday 04/14. Flowsheet Date 04/17/2020 Angela Score Blood Edema Fundus Height Fundus Units Glucose Ketones Leukocytes Nitrite Labor Signs Protein Cervic Dilation Cervic Effacement Cervic Station Type Weight in lbs Pre/Post Dialysis Refused Stated 221.154169869624 BP Diastolic BP Location Tested BP Systolic BP Type Fetus Heart Rate Present Fetus Movement Comments Flowsheet Date 04/26/2020 Angela Score Blood Edema Fundus Height Fundus Units Glucose Ketones Leukocytes Nitrite Labor Signs Protein Cervic Dilation Cervic Effacement Cervic Station trace none 32 wks none trace Backpain 1+ Type Weight in lbs Pre/Post Dialysis Refused Weight 224.276392235464 BP Diastolic BP Location Tested BP Systolic BP Type 60 120 sitting 72 106 sitting Fetus Heart Rate Present A 143 Present Fetus Movement A Yes Comments ESTEFANÍA at 32w2d. 3rd trimester US 04/14: MYLA 17.5, vertex presentation, EFW 26%. UA showed 100 protein, f/u PIH pabs. Normotensive is office. Maternity belt provided. Flowsheet Date 05/10/2020 Angela Score Blood Edema Fundus Height Fundus Units Glucose Ketones Leukocytes Nitrite Labor Signs Protein Cervic Dilation Cervic Effacement Cervic Station trace trace 34 wks none trace none 4+ Type Weight in lbs Pre/Post Dialysis Refused Weight 239.564679623952 BP Diastolic BP Location Tested BP Systolic BP Type 60 120 sitting Fetus Heart Rate Present A 155 Present Fetus Movement A Yes Comments ESTEFANÍA at 34w2d. Significant sw elling on exam, 15# weight gain. 24 hour protein ~8600, pt sent to [facility] for impending preeclampsia. Full transfer of care to [facility]. Discussed with Dr. Blackmon. Flowsheet Date 05/29/2020 Angela Score Blood Edema Fundus Height Fundus Units Glucose Ketones Leukocytes Nitrite Labor Signs Protein Cervic Dilation Cervic Effacement Cervic Station Type Weight in lbs Pre/Post Dialysis Refused With clothes 208.116496019282 BP Diastolic BP Location Tested BP Systolic BP Type 82 110 sitting Fetus Heart Rate Present Fetus Movement Comments Menstrual History Last Menstrual Date Menses Monthly On Bcp Conception Prior Menses Frequency Hcg Plus Date Menarche Onset Age 0409/09/2019 true false 11 Genetic Screening And Infection History Question Response Note Patient's Age Will Be 35 Yea rs Or Older At Estimated Date of Delivery false Thalassemia (Yemeni, Yoruba, Mediterranean, Or Background): MCV < 80 false Neural Tube Defect (Meningom yelocele, Spina Bifida, Or Anencephaly) false Congenital Heart Defect true Partner' s mother and patient's maternal uncle with hole in heart Down Syndrome false Steve-Sachs (eg, Samaritan, Cajun , Liberian-Kosovan) false Faheem Disease false Sickle Cell Disease Or Trait () false Hemophilia Or Other Blood Disorders false Muscular Dystrophy false Cystic Fibrosis false Rockbridge's Chorea false Mental Retardation/Autism false If Yes, Was Person Tested For Fragile X? false Other Inherited Genetic Or C hromosomal Disorder false Maternal Metabolic Disorder (eg, Type 1 Diabetes, PKU) false Patient Or Baby's Father Had A Child With Defects Not Listed Above false Recurrent Loss, Or A Stillbirth false Medications (including Suppl ements, Vitamins, Herbs, OTC Drugs), Illicit/Recreational Drugs, Alcohol false If Yes, Agent(s) And Strength/Dosage false Any Other Genetic History false Live With Someone With TB Or Exposed To TB false Patient Or Partner Has Histo ry Of Genital Herpes false Rash Or Viral Illness Since Last Menstrual Period false History Of STD, Gonorrhea, C hlamydia, HPV, Syphilis false Other Infection History false History of HIV false History of Hepatitis false Prior GBS-infected child false Plans and Education First Trimester Discussed Date Discussion Item Discussion Note Discuss ed By 11/02/2019 Anticipated course o f care [email or web address] 11/02/2019 Alcohol [email or web address] 11/02/2019 Intimate partner violence kate [email or web address] 11/02/2019 Environmental/work hazards j [email or web address] 11/02/2019 Screening for aneuploidy jco [email or web address] 11/02/2019 Nutrition counseling ; special diet; dietary precautions (mercury, listeriosis) [email or web address] 11/02/2019 Childbirth classes/h ospital facilities schedule of classes provided [email or web address] 11/02/2019 HIV and other routin e tests [email or web address] 11/02/2019 Risk factors identif ied by history [email or web address] 11/02/2019 Weight gain counseling <20 pounds jcort [email or web address] 11/02/2019 Exercise [email or web address] 11/02/2019 Teratogens [email or web address] 11/02/2019 Use of any medicatio ns (including supplements, vitamins, herbs, or OTC drugs) [email or web address] 11/02/2019 plans to breastfeed jcortop [email or web address] 11/02/2019 Sexual activity [email or web address] 11/02/2019 Tobacco/smoking cess ation counseling (ask, advise, assess, assist, and arrange) [email or web address] 11/02/2019 Illicit/recreational drugs j [email or web address] 11/02/2019 Dental care dental consent provided jcor [email or web address] 11/02/2019 Travel [email or web address] 11/02/2019 Seat belt use [email or web address] 11/02/2019 Indications for ultrasonography [email or web address] 11/02/2019 Avoidance of saunas or hot tubs [email or web address] 11/02/2019 Toxoplasmosis precau tions (cats/raw meat) [email or web address] Second Trimester Discussed Date Discussion Item Discussion Note Discuss ed By 01/25/2020 [facility] [email or web address] 01/25/[address] anning/tubal sterilization POPs [email or web address] 01/25/2020 Depression screening (when indicated) [email or web address] 01/25/2020 Abnormal lab values jcortopa [email or web address] 01/25/2020 Signs and symptoms of labor [email or web address] 01/25/2020 Intimate partner violence denies kate [email or web address] 01/25/2020 Tobacco/smoking cess ation counseling (ask, advise, assess, assist, and arrange) [email or web address] Third Trimester Discussed Date Discussion Item Discussion Note Discuss ed By 03/27/2020 Intimate partner violence kate [email or web address] 03/27/2020 Anesthesia plans [email or web address] 1 03/27/2020 education (n ewborn screening, jaundice, SIDS/safe sleeping position, car seat) discussed at [facility] [email or web address] 03/27/2020 Circumcision yes [email or web address] 03/27/2020 Postterm counseling jcortopa [email or web address] 03/27/2020 movement monitoring kick counts dis cussed [email or web address] 03/27/2020 plans to bottle feed jcorto [email or web address] 03/27/2020 Labor signs [email or web address] 03/27/2020 depression jcorto [email or web address] 03/27/2020 Family medical leave or disability forms [email or web address] 03/27/2020 Tobacco/smoking cess ation counseling (ask, advise, assess, assist, and arrange) [email or web address] 03/27/2020 Signs and symptoms of preeclampsia [email or web address] Delivery Information Delivery Date Delivery Type Labor Anesthesia Weeks Gestation Incision Type Labor Labor Length Hrs Delivered By Post Complications Tubal Sterilization Discharge Date Comments 0 Induce d Regional-Ep idural 35.1 true [facility] Hypertension false Discharge Information Feeding Method Contraceptive Method Maternal HG B and HCT Levels Bottle bcp
--- OUTSIDE RECORDS SUMMARY | 2025-05-18 21:13 | XMS_ITS | Clinical Summary ---
Author Organization [facility] Address [address] [place] [address] Care Team Providers Care Noxious Weeds And Pest Inspector Name Role Phone Jai Darby Primary Care Provider + Source Comments [facility],non-owned Affiliates and Associated Physician Practices is amultiple site organization consisting of ambulatory clinics and hospital sitesin [place], [place], [place] and [place]. This disclosure is being madepursuant to the Care Everywhere program and may not contain all information available regarding this patient. 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 Gender Identity Not on file Sexual Orientation Not on file Last Filed Vital Signs Vital Sign Reading Time Taken Comments Blood Pressure 126/81 05/22/2020 12:17 PM WOOD CASKET MAKER Pulse 86 05/22/2020 12:17 PM WOOD CASKET MAKER Temperature 36.8 C (98.3 F) 05/18/2020 3:45 PM WOOD CASKET MAKER Respiratory Rate 16 05/18/2020 3:45 PM WOOD CASKET MAKER Oxygen Saturation 100% 05/18/2020 3:45 PM WOOD CASKET MAKER Inhaled Oxygen Concentration - - Weight 111 kg (244 lb 11.2 oz) 05/18/2020 5:53 A M WOOD CASKET MAKER Height 160 cm (5' 3) 05/17/2020 4:00 AM WOOD CASKET MAKER Body Mass Index 43.35 05/17/2020 4:00 AM WOOD CASKET MAKER Plan of Treatment Health Maintenance Due Date [...] History ====== OB History 2. Para 1 [id number] 1. live 2019. Gest. age 37 w [...] 1 lb 1 oz EFW by Hadlock ([id number]) appropriate Growth Overview Exam date [place] BPD [...] view. RVOT view. LVOT view. 3-vessel view. 6-mzxebj-djjwzrq view. Situs. Aortic arch view. Bicaval view. [...] Z36.3: Encounter for screening for malformations Procedures 15539: US Preg Uterus Detailed 23222: US Preg Uterus Transvaginal [facility] [employer] PACS Anatomical Region Laterality Modality Other 02/22/2025 9:13 AM CDT Salvatore Cosme MD [facility] ORDERABLES Edited Result - Final from Last 3 Months Insurance [facility] Care Address: [address] [address] [facility] Advance Directives * Full Code (Latest Code Status on File) Date Activated Date Inactivated Comments 05/14/2020 8:50 AM 05/18/2020 7:20 PM * Full Code Date Activated Date Inactivated Comments 05/10/2020 3:32 PM 05/14/2020 8:50 AM Care Teams Noxious Weeds And Pest Inspector Relationship Specialty Start Date End Date Jai Darby PA [address] [place] [address] PCP - General 03/01/21
--- OUTSIDE RECORDS SUMMARY | 2025-05-18 21:13 | XMS_ITS | Clinical Summary ---
Author Organization [employer] [facility] Address [address] [place] [address] Care Team Providers Care Hospice Care Sales Consultant Name Role Phone Pcp, No Primary Care Provider [phone] Social History Tobacco Use Types Packs/Day Years Used Date Smoking Tobacco: Never Assessed Comments Unknown Sex and Gender Information Value Date Recorded Sex Assigned at Not on file Legal Sex Female 1:30 PM EST Gender Identity Not on file Sexual Orientation Not on file Plan of Treatment Not on file Medical Devices Not on file Insurance [employer] MICHELLE Care Teams Hospice Care Sales Consultant Relationship Specialty Start Date End Date Pcp, No PCP - General Family Medicine 11/12/20
--- OUTSIDE RECORDS SUMMARY | 2025-05-18 21:13 | XMS_ITS | Clinical Summary ---
Author Organization [facility] Address [address] [place] [address] Care Team Providers Care Reproductive Healthcare Assistant Name Role Phone Unknown, Notinfile Primary Care [...] on file Legal Sex Female 10:35 PM [employer] Gender Identity Not on file Sexual Orientation [...] age to complete this topic Insurance [facility] Care Teams Reproductive Healthcare Assistant Relationship Specialty Start Date End Date Unknown, Notinfile PCP - General 10/20/24
--- NOTE | 2025-06-15 20:32 | PM.OBTRLD ---
OB - Triage/Final Diagnosis Visit Information Comments/Additional reasons for admission: I have assessed the risk for this patient, Raquel Rios, and determined that she would benefit from observation care. Evaluation Laboratory results: Laboratory Tests 05/18/25 05/18/25 18:08 19:27 Urine Color Yellow Urine Appearance Clear Urine pH 7.0 Ur Specific [place] 1.023 Urine Protein Trace Urine Glucose (UA) Negative Urine Ketones Negative Ur Blood (Man) Negative Urine Nitrate Negative Urine Bilirubin Negative Urine Urobilinogen 1.0 Leukocyte Esterase Rfl 1+ H Urine RBC 0-2 Urine WBC 6-10 H Ur Squamous Epith Cells Few Urine Bacteria 1+ H Urine Casts 0-2 Fibronectin Negative Final Diagnosis (1) Mildly increased blood pressure and edema during : Code(s): O14.00 - Mild to moderate pre-eclampsia, unspecified trimester Status: Acute (2) Threatened labor, antepartum: Code(s): O47.9 - False labor, unspecified Status: Acute
== END 2025-05-18 20:30 | disposition home or self-care (01) ==
PROVIDERS: Obstetrics & Gynecology; Admitting Provider Student in an Organized Health Care Education/Training Program; PCP Emergency Medicine; Visit Provider Student in an Organized Health Care Education/Training Program
DX: O47.03 False labor before 37 completed weeks of gestation, third trimester (principal); Z3A.33 33 weeks gestation of pregnancy; O14.03 Mild to moderate pre-eclampsia, third trimester
CPT/HCPCS: 81001; 82731; 87086; G0378; G0379